=== PATIENT | female | born 1935 | race Caucasian/White ===

== ENCOUNTER 2019-11-13 15:29 | Emergency (ER) | payer OTHER ==
--- NOTE | 2019-11-13 16:31 | RAD ---
Exam: Chest one view HISTORY:Pain. Shortness of breath Comparison: 11/04/2013 FINDINGS: Cardiac silhouette: Cardiomegaly. Stable sternotomy wires and prosthetic heart valve. Aorta: Unremarkable Pulmonary vessels: Normal Costophrenic angles: Clear LUNGS: No masses or consolidation. Chronic lung parenchymal changes. Pneumothorax: None Osseous abnormalities: None IMPRESSION: 1. Cardiomegaly. 2. No evidence of congestive heart failure.
[2019-11-13 16:32] LABS: #Basophils 0.1 thou/uL (0.0-0.2); #Eosinphils 0.5 thou/uL (0.0-0.7); #Lymphocytes 2.2 thou/uL (1.20-3.40); #Neutrophils 5.2 thou/uL (1.40-6.50); %Basophils 0.7 % (0.0-1.0); %Eosinophils 5.3 % (0.0-10.0); %Lymphocytes 24.5 % (21.0-51.0); %Monocytes 10.9 % (0.0-10.0); %Neutrophils 58.7 % (42.0-75.0); Hemoglobin 10.4 g/dL (12.0-16.0); Mean Corpuscular HGB CONC 32.9 g/dL (32.0-36.0); Mean Corpuscular Hemoglobin 30.3 pg (27.0-31.0); Mean Platelet Volume 7.6 fL (7.4-10.4); Platelet Count 235 thou/uL (130-400); RBC Distribution Width 12.7 % (11.5-14.5); Red Blood Cell (RBC) Count 3.43 mill/uL (4.20-5.40); White Blood Cell (WBC) Count 8.9 thou/uL (4.8-10.8)
[2019-11-13 16:47] LABS: ALT (SGPT) 14 U/L (8-55); AST (SGOT) 18 U/L (5-34); Albumin 4.1 g/dL (3.4-4.8); Alkaline Phosphatase 86 U/L (40-110); Anion Gap 14 mmol/L (10-20); BUN (Urea Nitrogen) 13 mg/dL (9.8-20.1); Bilirubin, Total 0.4 mg/dL (0.2-1.2); Calc. Creatinine Clearance 0 mL/min (70-130); Calcium 9.6 mg/dL (7.8-10.44); Carbon Dioxide 23 mmol/L (23-31); Chloride 107 mmol/L (98-107); Estimated GFR-MDRD 56; Globulin 3.4 g/dL (2.4-3.5); Glucose 87 mg/dL (83-110); Potassium 3.8 mmol/L (3.5-5.1); Protein, Total 7.5 g/dL (6.0-8.3); Sodium 140 mmol/L (136-145)
[2019-11-13 18:55] LABS: Troponin I 0.011 ng/mL (< 0.028)
== END 2019-11-13 19:10 | disposition home or self-care (01) ==
LOC: MERGE 15:29 → ERS 15:29
DX: R55 Syncope and collapse (principal); R06.02 Shortness of breath; E78.5 Hyperlipidemia, unspecified; I10 Essential (primary) hypertension; Z79.82 Long term (current) use of aspirin; Z79.899 Other long term (current) drug therapy
CPT/HCPCS: 36415; 71045; 80053; 83880; 84484; 85025; 93005

== ENCOUNTER 2020-04-21 13:56 | Observation (INO) | payer MEDICARE, OTHER ==
[~2020-04-21 13:56] MED LIST: Iopamidol-370 76% 500 ML 1 ML ONE
[2020-04-21 15:10] LABS: #Lymphocytes 0.7 thou/uL (1.20-3.40); #Monocytes 0.4 thou/uL (0.11-0.59); #Neutrophils 10.7 thou/uL (1.40-6.50); %Basophils 0.3 % (0.0-1.0); %Eosinophils 0.4 % (0.0-10.0); %Lymphocytes 5.5 % (21.0-51.0); %Monocytes 3.2 % (0.0-10.0); %Neutrophils 90.7 % (42.0-75.0); Hemoglobin 9.4 g/dL (12.0-16.0); Mean Corpuscular HGB CONC 32.7 g/dL (32.0-36.0); Mean Corpuscular Hemoglobin 31.7 pg (27.0-31.0); Mean Corpuscular Volume 96.8 fL (78.0-98.0); Mean Platelet Volume 7.7 fL (7.4-10.4); Platelet Count 248 thou/uL (130-400); RBC Distribution Width 13.2 % (11.5-14.5); Red Blood Cell (RBC) Count 2.97 mill/uL (4.20-5.40); White Blood Cell (WBC) Count 11.8 thou/uL (4.8-10.8)
--- NOTE | 2020-04-21 15:19 | CT ---
CT BRAIN NONCONTRAST: DATE: 04/21/2020 HISTORY: 84-year-old female with nausea, dizziness, and vomiting FINDINGS: There is no evidence of acute intra-axial or extra-axial hemorrhage. There is no midline shift or any other mass effect. There is no extra-axial fluid collection. There is no evidence of obstructive hydrocephalus. Calvarium is intact. There is diffuse brain parenchymal volume loss. There are low att enuation areas in the white matter. These are nonspecific, but in a patient of this age, they are probably chronic ischemic white matter changes due to microvascular atherosclerosis. IMPRESSION: 1) No acute intracranial findings. 2) involutional changes and chronic ischemic white matter changes.
--- NOTE | 2020-04-21 15:30 | RAD ---
PORTABLE CHEST: 04/21/20 INDICATIONS: Dizziness. COMPARISON: 11/13/19. Mild cardiomegaly and mild vascular engorgement. Postop sternotomy changes. Linear stranding in the p eripheral left lung is stable. Mild vascular congestion may be more prominent than on the prior study . No consolidation. No significant effusion. IMPRESSION: Cardiomegaly and mild vascular congestion. POS: AH
[2020-04-21 15:31] LABS: ALT (SGPT) 11 U/L (8-55); AST (SGOT) 22 U/L (5-34); Albumin 4.3 g/dL (3.4-4.8); Alkaline Phosphatase 89 U/L (40-110); Anion Gap 15 mmol/L (10-20); BUN (Urea Nitrogen) 18 mg/dL (9.8-20.1); Bilirubin, Total 0.4 mg/dL (0.2-1.2); Calc. Creatinine Clearance 0 mL/min (70-130); Calcium 9.2 mg/dL (7.8-10.44); Carbon Dioxide 21 mmol/L (23-31); Chloride 108 mmol/L (98-107); Estimated GFR-MDRD 53; Globulin 3.2 g/dL (2.4-3.5); Glucose 130 mg/dL (83-110); Potassium 4.1 mmol/L (3.5-5.1); Protein, Total 7.5 g/dL (6.0-8.3); Sodium 140 mmol/L (136-145)
[2020-04-21] MEDS ORDERED: Meclizine HCl 25 MG TAB ONE (15:57)
[2020-04-21 16:29] LABS: Bacteria/HPF None Seen HPF (None Seen); Bilirubin Negative (Negative); Blood, Urine Negative (Negative); Clarity Clear (Clear); Glucose, Urine (Dipstick) Normal (Negative); Ketone, Urine Trace mg/dL (Negative); Leukocyte Negative Leu/uL (Negative); Nitrite Negative (Negative); Protein, Urine (Dipstick) 30 mg/dL (Neg-Trace); RBC/HPF 0-3 HPF (0-3); Specific Gravity, Urine 1.016 (1.002-1.036); Squamous Epithelial None Seen HPF (0-3); Urobilinogen Normal mg/dL (Less than 2); WBC/HPF 0-3 HPF (0-3)
--- NOTE | 2020-04-21 18:01 | PDOC.FPRHP ---
- History of Present Illness Chief Complaint: dizziness History of Present Illness: Pt is an 84yo female with PMH of HTN, HLD and hypothryoidism who presents with one episode of dizziness. She was outside watering her yard this morning and had a sudden onset of dizziness, and felt as if she might faint. She then began vomiting. She was able to sit down and drink some water. The dizziness resolved on its own. She has had veritgo in the past but this felt different. She felt that this was more intense and she had a feeling that something was wrong with her heart. She is unable to describe the dizziness, but denied feeling like the room was spinning. Has not recently been sick. Eating and drinking as normal. Admits to feeling anxious, but says that is normal for her. Denies CP, SOB, fall, weakness, numbness/tingling, slurred speech. ED Course: meclizine - Allergies/Adverse Reactions Allergies Allergy/AdvReac Type Severity Reaction Status Date / Time erythromycin base Allergy Unknown Verified 11/16/19 15:24 Penicillins Allergy Unknown Verified 11/16/19 15:24 Sulfa (Sulfonamide Allergy Unknown Verified 11/16/19 15:24 Antibiotics) tetracycline [Tetracycline] Allergy Unknown Verified 11/16/19 15:24 vancomycin Allergy Unknown Verified 11/16/19 15:24 - Home Medications Medication Instructions Recorded Confirmed Type Furosemide [Lasix] 40 mg PO DAILY 06/15/13 01/15/17 History Levothyroxine Sodium [Tirosint] 75 mcg PO DAILY 06/15/13 01/15/17 History Losartan Potassium [Cozaar] 25 mg PO DAILY 06/15/13 01/15/17 History Multivitamin [Multivitamins] 1 cap PO DAILY 06/15/13 01/15/17 History Simvastatin [Zocor] 40 mg PO HS 06/15/13 01/15/17 History diphenhydrAMINE [Benadryl] 25 mg PO HS 06/15/13 01/15/17 History Aspirin Chewable 81 mg PO DAILY 11/02/13 01/15/17 History Diltiazem HCl [Diltiazem 24Hr CD] 120 mg PO DAILY 11/02/13 01/15/17 History Fluticasone Propionate [Flonase 1 spray NASAL DAILY 01/15/17 01/15/17 History Nasal Curran] Potassium Chloride [Klor-Con M20] 20 meq PO HS 01/15/17 01/15/17 History - History PMHx: HLD, HTN, hypothyroidism PSHx: CABGx5 in 2011, mitral valve repair 2013, cataracts surgery 4 years ago FHx: mother- heart disease Social: never smoker, rarely drinks alcohol, denies drug use - Review of Systems General: denies: fever/chills, weight/appetite/sleep changes Eyes: denies: vision changes ENT: denies: nasal congestion Respiratory: denies: cough, congestion, shortness of breath Cardiovascular: denies: chest pain, edema Gastrointestinal: reports: nausea, vomiting. denies: diarrhea Skin: denies: rashes Musculoskeletal: denies: pain, tenderness Neurological: denies: numbness, syncope, weakness Psychological: reports: anxiety - Vital signs BP: 164/61, Pulse: 86, Resp: 24, O2 sat: 97 on (Room Air), BP taken on forearm - Physical Exam -Constitutional: sitting in bed, appeared to be working hard to breath but she and daughter said this is normal HEENT: normocephalic and atraumatic, grossly normal vision, grossly normal hearing -HEENT: dry MM Heart: RRR -Heart: blowing 2/6 holosytolic murmur heard best at apex of heart Lungs: CTAB, no wheezing Abdomen: soft, non-tender, bowel sounds present Musculoskeletal: normal structure, normal tone Neurological: no focal deficit, CN II-XII intact -Neurological: HINTS exam showed no nystagmus, no vertical skew and neg head impulse test Skin: no rash/lesions, no jaundice Psychiatric: normal mood and affect FMR H&P: Results - Labs Result Diagrams: 04/21/20 15:03 04/21/20 15:03 Lab results: WBC 11.8 thou/uL (4.8-10.8) H 04/21/20 15:03 Hgb 9.4 g/dL (12.0-16.0) L 04/21/20 15:03 Hct 28.7 % (36.0-47.0) L 04/21/20 15:03 MCV 96.8 fL (78.0-98.0) 04/21/20 15:03 Plt Count 248 thou/uL (130-400) 04/21/20 15:03 Neutrophils % 90.7 % (42.0-75.0) H 04/21/20 15:03 Sodium 140 mmol/L (136-145) 04/21/20 15:03 Potassium 4.1 mmol/L (3.5-5.1) 04/21/20 15:03 Chloride 108 mmol/L (98-107) H 04/21/20 15:03 Carbon Dioxide 21 mmol/L (23-31) L 04/21/20 15:03 BUN 18 mg/dL (9.8-20.1) 04/21/20 15:03 Creatinine 1.00 mg/dL (0.6-1.1) 04/21/20 15:03 Glucose 130 mg/dL (83-110) H 04/21/20 15:03 Calcium 9.2 mg/dL (7.8-10.44) 04/21/20 15:03 Total Bilirubin 0.4 mg/dL (0.2-1.2) 04/21/20 15:03 AST 22 U/L (5-34) 04/21/20 15:03 ALT 11 U/L (8-55) 04/21/20 15:03 Alkaline Phosphatase 89 U/L (40-110) 04/21/20 15:03 Serum Total Protein 7.5 g/dL (6.0-8.3) 04/21/20 15:03 Albumin 4.3 g/dL (3.4-4.8) 04/21/20 15:03 Urine Ketones Trace mg/dL (Negative) A 04/21/20 16:07 Urine Blood Negative (Negative) 04/21/20 16:07 Urine Nitrite Negative (Negative) 04/21/20 16:07 Ur Leukocyte Esterase Negative [place]/uL (Negative) 04/21/20 16:07 Urine RBC 0-3 HPF (0-3) 04/21/20 16:07 Urine WBC 0-3 HPF (0-3) 04/21/20 16:07 Ur Squamous Epith Cells None Seen HPF (0-3) 04/21/20 16:07 Urine Bacteria None Seen HPF (None Seen) 04/21/20 16:07 FMR H&P: A/P - Plan #Presynope 2/2 arrhythmia vs TIA vs vertigo vs medications - hx of HTN, HLD, CABGx5 and mitral valve repair - Neuro exam normal, non-focal - ekg showed LVH - Brain CT normal, ordered MRI and CTA Head/Neck - pending labs: BNP, TSH, A1c, lipid panel - echo ordered - fall precautions - admit to stroke with continuous tele monitor #Anemia - appears to be chronic - EGD and colonoscopy in 2017 - normal - #HTN - BPs in ED elevated up to Ps 170 - hydralazine prn - continue home meds #HLD - continue home meds Code: Full Diet: HH DVT PPx: lovenox Dispo: Admit to stroke, obs, stable, pending labs and imaging, LOS <48hrs FMR H&P: Upper Level - Plan Date/Time: 04/21/201800 IKiesha MD, have evaluated this patient and agree with findings/plan as outlined by customer operations intern resident. Pertinent changes/additions are listed here. This is a 84yo F with PMH of HLD, heart valve repair, anxiety who presents to the ER for dizziness. She states that she was outside watering her plants when she became very dizzy and felt like she was going to pass out. She states she has had vertigo in the past but this was much more intense. She had difficulty describing the dizziness sensation. Reports she was able to sit down on the ground. No fall. She states that she was nauseous and vomited at the time. Denies any SOB, chest pain, diaphoresis, palpitations during the episode. She denies any vision changes, facial droop, slurred speech, extremity weakness or numbness. Her came out to help her. Shes not sure how long the episode lasted but she improved as time went on. Reports no recent illness. Has been eating well. See customer operations intern not for full HPI/details. In the ER, the patient was given 1 L NS, meclizine. She had resolution of dizziness with this. CXR showed cardiomegaly. Vs remarkable for elevated BPs, but otherwise normal. On exam, patient breathing through pursed lips. Fidgeting, but not in distress. Appeared anxious. Pansystolic murmur over mitral /6. Trace pitting edema b/l LE. No abd distention or tenderness. Normal neuro exam. HINTs exam negative. Will admit patient to stroke obs. Concern for TIA vs CVA vs cardiac etiology of symptoms vs vertigo. Pending BNP. Will get echo due to cardiomegaly shown on CXR and hx of valve replacement. CT brain neg for bleed or any abnormalities. Will order CTA head/neck, MRI. EKG showing nonspecific T wave changes - will reorder EKG. Will risk stratify with A1c, TSH, and lipid panel. Anemia - appears chronic and at baseline. Will continue to monitor. Can work up further with iron studies, B12/folate. Will continue home medications for chronic conditions. Add hydroxyzine for anxiety. Dispo: admit to stroke, obs. Monitor telemetry. Ppx: lovenox Diet: HH Code: Full Case discussed with Dr. James Addendum - Attending - Attending Attestation Date/Time: 04/21/202110 I personally evaluated the patient and discussed the management with Dr. Braswell/ Michele. I agree with the History, Examination, Assessment and Plan documented above with any addition or exceptions noted below. negative [place]-Halpike maneuver. F/U Telemetry, MRI, and neuro exam overnight.
[2020-04-21] MEDS ORDERED: Ondansetron PF 4 MG/2 ML Vial IVP PRN (18:48)
[2020-04-21] MEDS ORDERED: Acetaminophen 325 MG TAB PO PRN (18:48)
[2020-04-21] MEDS ORDERED: Ondansetron ODT 4 MG TAB PO PRN (18:48)
[2020-04-21] MEDS ORDERED: hydrALAZINE 10 MG TAB PO PRN (19:20)
[2020-04-21 19:42] LABS: Hemoglobin A1c 4.7 % (4.0-6.0)
[2020-04-21] MEDS ORDERED: Meclizine HCl 25 MG TAB PO PRN (19:42)
[2020-04-21] MEDS ORDERED: Sodium Chloride 0.9% 1,000 ML IV SCH (20:30)
[2020-04-21 20:40] VITALS: BMI 22.7
[2020-04-21] MEDS ORDERED: Aspirin 325 MG TAB PO SCH (21:30)
[2020-04-21 22:35] LABS: Base Excess (BEa) -4.4 mEq/L (-2.0 to +3.0); CO2 Tension 28.5 mmHg (35.0-45.0); Calcium, Ionized (arterial) 1.14 mmol/L (1.12-1.30); Carboxyhemoglobin (COHb) 1.6 gm% (0.0-3.0); Hemoglobin (Hb) 8.1 g/dL (12.0-16.0); O2 Tension (PaO2), arterial 74.3 mmHg (> 60.0); Potassium - ABG Lab 3.52 mmol/L (3.70-5.30); pH, Arterial 7.44 (7.35-7.45)
[2020-04-21 22:36] LABS: Puncture Site RR
[2020-04-21 22:38] LABS: ALV-art Gradient 39.805 (0-20)
[2020-04-21] MEDS ORDERED: diphenhydrAMINE 25 MG CAP PO PRN (23:41)
[2020-04-21] MEDS ORDERED: Atorvastatin Calcium 40 MG TAB PO SCH (23:45)
[2020-04-22 04:22] LABS: #Eosinphils 0.4 thou/uL (0.0-0.7); #Lymphocytes 1.6 thou/uL (1.20-3.40); #Monocytes 1.2 thou/uL (0.11-0.59); #Neutrophils 7.9 thou/uL (1.40-6.50); %Basophils 0.3 % (0.0-1.0); %Eosinophils 3.7 % (0.0-10.0); %Lymphocytes 14.2 % (21.0-51.0); %Neutrophils 70.7 % (42.0-75.0); Hemoglobin 8.3 g/dL (12.0-16.0); Mean Corpuscular HGB CONC 33.1 g/dL (32.0-36.0); Mean Corpuscular Hemoglobin 32.1 pg (27.0-31.0); Mean Platelet Volume 7.6 fL (7.4-10.4); Platelet Count 237 thou/uL (130-400); RBC Distribution Width 13.2 % (11.5-14.5); Red Blood Cell (RBC) Count 2.59 mill/uL (4.20-5.40); White Blood Cell (WBC) Count 11.2 thou/uL (4.8-10.8)
[2020-04-22 04:41] LABS: Iron 26 ug/dL (50-170); Iron Binding Capacity, Total 221 mcg/dL (265-497)
--- NOTE | 2020-04-22 07:22 | PDOC.FM ---
- Subjective Subjective: Pt is doing well today. Her symptoms have resolved. She ambulating with an issue. She became lightheaded, warm after working in the yard. Lightheadedness apparently alleviated a few minutes after the initial insult. - Objective Vital Signs & Weight: Vital Signs (12 hours) Temp Pulse Resp BP BP BP Pulse Ox 04/22/20 03:44 98.3 F 80 20 146/59 H 95 04/22/20 00:17 98.1 F 90 20 158/84 H 95 04/21/20 20:41 97.6 F 94 22 H 165/71 H 96 Weight Weight 56.382 kg I&O: 04/21/20 04/22/20 04/23/20 06:59 06:59 06:59 Intake Total 1200 Balance 1200 Result Diagrams: 04/22/20 04:06 04/21/20 15:03 EKG Reviewed by me: Yes (Sinus Rhythm, few PAC's) Phys Exam - Physical Examination Constitutional: NAD HEENT: PERRLA, moist MMs Neck: no JVD, full ROM Respiratory: no wheezing, clear to auscultation bilateral Cardiovascular: RRR, no significant murmur Gastrointestinal: soft, non-tender, positive bowel sounds Neurological: non-focal, normal sensation, moves all 4 limbs Psychiatric: normal affect, A&O x 3 Skin: no rash, normal turgor Dx/Plan (1) Pre-syncope Status: Acute (2) Hx of coronary artery disease Code(s): Z86.79 - PERSONAL HISTORY OF OTHER DISEASES OF THE CIRCULATORY SYSTEM Status: Acute (3) Anemia Code(s): D64.9 - ANEMIA, UNSPECIFIED Status: Acute (4) Hyperlipidemia Code(s): E78.5 - HYPERLIPIDEMIA, UNSPECIFIED Status: Acute (5) HTN (hypertension) Code(s): I10 - ESSENTIAL (PRIMARY) HYPERTENSION Status: Acute (6) Hx of CABG Status: Acute (7) Carotid artery stenosis Code(s): I65.29 - OCCLUSION AND STENOSIS OF UNSPECIFIED CAROTID ARTERY Status : Acute - Plan Plan: #Presynope 2/2 arrhythmia vs TIA vs vertigo vs medications - hx of HTN, HLD, CABGx5 and mitral valve repair - Neuro exam normal, non-focal - ekg showed LVH - Brain CT normal, CTA head/neck revealed moderate carotid artery stenosis - echo ordered, mri pending read - fall precautions #Normocytic Anemia - appears to be chronic - labs point towards iron deficiency anemia. Start ferrous sulfate. Follow up with PCP. - EGD and colonoscopy in 2017 - normal #HTN - hydralazine prn - continue home meds #HLD - continue home meds Code: Full Diet: HH DVT PPx: lovenox Dispo: discharge if echo, mri are wnl. Addendum - Attending - Attending Attestation Date/Time: 04/22/20 1537 I personally evaluated the patient and discussed the management with Dr. Van. I agree with the History, Examination, Assessment and Plan documented above with any addition or exceptions noted below. Patient has no more dizziness. MRI report was pending. If normal, will d/c later today.
[2020-04-22] MEDS ORDERED: Ferrous Sulfate 325 MG TAB PO SCH (08:00)
[2020-04-22] MEDS ORDERED: Aspirin 81 mg Enteric Coated Tablet PO SCH (09:00)
[2020-04-22] MEDS ORDERED: Potassium Chloride 20 MEQ TAB PO SCH (09:00)
[2020-04-22] MEDS ORDERED: Levothyroxine Sodium 75 MCG TAB PO SCH (09:00)
[2020-04-22] MEDS ORDERED: Multivitamin W/ Minerals 1 TAB PO SCH (09:00)
[2020-04-22] MEDS ORDERED: Fluticasone Propionate Nasal Spray 16 gm Bottle NASAL SCH (09:00)
[2020-04-22] MEDS ORDERED: Enoxaparin Sodium 40 MG/0.4 ML SYRINGE SC SCH (09:00)
[2020-04-22] MEDS ORDERED: Losartan 25 MG TAB PO SCH (09:00)
[2020-04-22] MEDS ORDERED: Furosemide 20 MG TAB PO SCH (09:00)
--- NOTE | 2020-04-22 09:10 | MRI ---
MRI OF THE BRAIN WITHOUT CONTRAST: Date: 04/22/2020 INDICATION: 84-year-old female with history of presyncope, dizziness, nausea, and vomiting. COMPARISON: CT of the brain dated 04/21/2020. FINDINGS: No definite area of restricted diffusion is evident. There is mild chronic small vessel white matter ischemic change. Septum pellucidum and third ventricle are midline. There are appropriate flow-voids within the major intracranial vessels. There is mild generalized cerebral and cerebellar atrophy. Mot ion artifact does limit image detail on this exam. The [place] lenses have been replaced. The skull ap pears within normal limits. IMPRESSION: No definite acute intracranial abnormality demonstrated within the limitations of this exam. POS: CLARIBEL
--- NOTE | 2020-04-22 09:53 | CT ---
Exam: CTA neck with contrast CTA head with contrast HISTORY: Dizziness COMPARISON: None TECHNIQUE: 1. Multiple contiguous axial images were obtained and a CTA of the neck with contrast. 3-D sagittal a nd coronal MIP reformats were performed. 2. Multiple contiguous axial images were obtained and a CTA of the head with contrast. 3-D sagittal a nd coronal MIP reformats were performed. FINDINGS: CTA NECK: Aortic arch: Normal origin of the carotid arteries from the arch. No significant atherosclerotic dise ase of the subclavian arteries. Right common carotid artery: No significant atherosclerotic disease or narrowing Left common carotid artery: No significant atherosclerotic disease or narrowing Right internal carotid artery: Moderate proximal atherosclerotic disease with approximately 50% steno sis per NASCET criteria Right external carotid artery: No significant atherosclerotic disease or narrowing Left internal carotid artery: Moderate proximal atherosclerotic disease with approximately 40% stenos is per NASCET criteria Left external carotid artery: No significant atherosclerotic disease or narrowing Right cervical vertebral artery: No significant atherosclerotic disease or narrowing Left cervical vertebral artery: No significant atherosclerotic disease or narrowing No cervical adenopathy. Emphysematous changes are seen in the lung apices. Degenerative changes are s een in the spine. CTA HEAD: Moderate diffuse nonfocal atherosclerotic disease is seen in the cavernous portion of both internal c arotid arteries. Right intracranial internal carotid artery: Patent without narrowing or occlusion Right anterior cerebral artery: Patent without narrowing or occlusion Right middle cerebral artery: Patent without narrowing or occlusion Left intracranial internal carotid artery: Patent without narrowing or occlusion Left anterior cerebral artery: Patent without narrowing or occlusion Left middle cerebral artery: Patent without narrowing or occlusion No aneurysmal dilatation is seen in the anterior circulation. Right vertebral artery: Mild diffuse atherosclerotic disease. Patent without narrowing or occlusion Left vertebral artery: Mild diffuse atherosclerotic disease. Patent without narrowing or occlusion Basilar artery: Patent without narrowing or occlusion The posterior cerebral arteries and cerebellar arteries are patent without narrowing or occlusion. No aneurysmal dilatation is seen in the posterior circulation. IMPRESSION: 1. No significant CTA abnormality of the neck 2. Moderate proximal bilateral internal carotid artery atherosclerotic disease without hemodynamicall y significant stenosis Transcribed Date/Time: 04/22/2020 9:53 AM
[2020-04-22 12:14] VITALS: BP 137/58; TEMP 98.7
[2020-04-22 13:58] LABS: SARS-CoV-2 MS2 Positive; SARS-CoV-2 N Gene Negative; SARS-CoV-2 S Gene Negative; SARS-CoV-2 by NAA Not Detected (NotDetected); SARS-CoV-2 orf1ab Negative
[2020-04-22] MEDS ORDERED: Atorvastatin Calcium 40 MG TAB PO SCH (21:00)
--- NOTE | 2020-04-23 06:34 | DIS ---
DATE OF ADMISSION: 04/21/2020 DATE OF DISCHARGE: 04/22/2020 RESIDENT: Jd Van DO ADMITTING ATTENDING: Montana James MD DISCHARGE ATTENDING: Lisbet White MD CONSULTS: None. PROCEDURES: 1. Brain CT on 04/21/2020 revealed no acute intracranial abnormalities. Involutional changes and chronic ischemic white matter changes. 2. Chest x-ray on 04/21/2020 revealed cardiomegaly and mild vascular congestion. 3. CT angiography of head and neck on 04/21/2020 revealed no significant CTA abnormality of the neck. Moderate proximal bilateral internal carotid artery atherosclerotic disease without hemodynamically significant stenosis. 4. Brain MRI on 04/22/2020 revealed no definite acute intracranial abnormality demonstrated within the limitations of the exam. 5. Echocardiogram on 04/22/2020 revealed EF estimated to be 60% to 65%. Restrictive filling pattern. Normal right ventricular size and function. Left atrium is [id number] dilated. Mildly enlarged right atrium size. Mitral annular calcification is present. S/P MV ring placement in 2013. Qkvj-[id number] mitral regurg is present. [id number] aortic regurgitation is noted. Mild AV sclerosis. [id number] tricuspid regurgitation. Mild pulmonic regurgitation present. PRIMARY DIAGNOSES: 1. Dehydration. 2. Vasovagal. 3. Moderate carotid artery atherosclerotic disease. 4. Normocytic anemia. SECONDARY DIAGNOSES: 1. Hypertension. 2. Hyperlipidemia. DISCHARGE MEDICATIONS: 1. Simvastatin 20 mg p.o. at bedtime. 2. Levothyroxine 75 mcg p.o. daily. 3. Lasix 20 mg p.o. daily. 4. Losartan 50 mg p.o. daily. 5. Benadryl 25 mg p.o. p.r.n. allergies. 6. Multivitamin 1 cap p.o. daily. 7. Diltiazem 120 mg p.o. daily. 8. Aspirin 81 mg p.o. daily. 9. Potassium 20 mEq p.o. daily. 10. Flonase 1 spray each nostril daily. 11. Ferrous sulfate 142 mg extended release p.o. daily. 12. Amitriptyline 25 mg p.o. at bedtime. 13. Sertraline 100 mg p.o. at bedtime. HISTORY OF PRESENT ILLNESS/HOSPITAL COURSE: Cinthya Hernandez is an 84-year-old with past medical history of hypertension, hyperlipidemia, hypothyroidism, coronary artery disease status post CABG x5 vessels, and mitral valve repair in 2013, who presented with a presyncopal episode while she was working outside in the heat. She states that she became lightheaded and nauseated requiring her to cool off by splashing water on her face. By the time she made it to the emergency department, she was found to be no longer dizzy but required meclizine for her nausea. EKG did not have any significant findings. Troponin was within normal limits, sodium 140, potassium 4.1, creatinine 1.0, glucose 130, BNP 185, and TSH 2.4. She was noted to have normal CT of her head without any acute abnormalities. She subsequently stayed on tele with telemetry overnight and did not have any arrhythmias that will be concerning for presyncopal or syncopal episode. CTA of the head and neck revealed moderate atherosclerotic disease, but this was not presumed to be significant enough to cause a presyncopal or syncopal episode. MRI of her head was within normal limits. Echocardiogram did not show severe structural disease to cause syncopal or presyncopal episode. The patient was also subsequently found to be anemic, which has been worked up and treated by Dr. Kasper. She was ordered lab work, revealed iron deficiency anemia. She denied any blood in her stools. After speaking with Dr. Kasper, the patient irregularly and inconsistently takes her ferrous sulfate. Discussed the importance of her taking the medication. Follow up with Dr. Kasper next week. Return precautions given. DISPOSITION: Stable. DISCHARGE INSTRUCTIONS: 1. Location: [facility]. 2. Diet: Heart healthy. 3. Activity: Cardiopulmonary limitations. 4. Follow up with Dr. Kasper within a week. Job ID: [id number]
--- NOTE | 2020-04-25 17:29 | EKG ---
Test Reason : CP Blood Pressure : / mmHG Vent. Rate : 093 BPM Atrial Rate : 093 BPM P-R Int : 186 ms QRS Dur : 114 ms QT Int : 402 ms P-R-T Axes : 071 071 094 degrees QTc Int : 499 ms Sinus rhythm with marked sinus arrhythmia Nonspecific ST and T wave abnormality Abnormal ECG When compared with ECG of 21-APR-2020 14:10, (Unconfirmed) Sinus rhythm has replaced Wide QRS rhythm Confirmed by ROBBI FERRARO (2) on 04/25/2020 5:28:47 PM Referred By: ARA Confirmed By:ROBBI FERRARO
== END 2020-04-22 15:22 | disposition home or self-care (01) ==
LOC: ERS 13:56 → 2SE 18:47
PROVIDERS: ADMIT Family Medicine; ATTEND Family Medicine
DX: E86.0 Dehydration (principal); I25.10 Atherosclerotic heart disease of native coronary artery without angina pectoris; I11.9 Hypertensive heart disease without heart failure; E03.9 Hypothyroidism, unspecified; E78.5 Hyperlipidemia, unspecified; I65.23 Occlusion and stenosis of bilateral carotid arteries; D50.9 Iron deficiency anemia, unspecified; Z79.82 Long term (current) use of aspirin; Z79.899 Other long term (current) drug therapy; Z88.0 Allergy status to penicillin; Z88.1 Allergy status to other antibiotic agents; Z88.2 Allergy status to sulfonamides; Z95.1 Presence of aortocoronary bypass graft; Z20.828 Contact with and (suspected) exposure to other viral communicable diseases
CPT/HCPCS: 51701; 70450; 70496; 70498; 70551; 71045; 80061; 82607; 82728; 82746; 82805; 83036; 83540; 83550; 83880; 84484; 85025; 93005; 93306; 96360; 96361; 96372; 99285; G0378 ×3; U0003; 36415; 80053; 81003; 81015; 84443; 87635; 93010; J1650; Q9967

== ENCOUNTER 2020-09-12 16:49 | Inpatient (IN) | payer MEDICARE ==
[2020-09-12] MEDS ORDERED: Ondansetron PF 4 MG/2 ML Vial ONE (16:53)
[2020-09-12] MEDS ORDERED: Pantoprazole 40 MG VIAL ONE (17:28)
--- NOTE | 2020-09-12 17:36 | RAD ---
PORTABLE CHEST: History: Hypotension, diarrhea. Comparison: 04-21-2020 FINDINGS: Heart size is enlarged. There are post op sternotomy changes. The lungs are clear of infiltrates. No signs of failure. Valve replacement is noted. Post op changes of the right shoulder. IMPRESSION: Cardiomegaly. No acute findings. POS: OFF
[2020-09-12 17:39] LABS: INR-International Normal Ratio 1.1; PTT 26.3 sec (22.9-36.1); Prothrombin Time 14.9 sec (12.0-14.7)
[2020-09-12 18:14] LABS: Free T4 (Free Thyroxine) 1.03 ng/dL (0.70-1.48); Thyroid Stimulating Hormone 6.3468 uIU/mL (0.35-4.94)
[2020-09-12 18:35] LABS: Hemoglobin 7.8 g/dL (12.0-16.0); Mean Corpuscular HGB CONC 31.7 g/dL (32.0-36.0); Mean Corpuscular Hemoglobin 29.4 pg (27.0-31.0); Mean Corpuscular Volume 92.9 fL (78.0-98.0); Mean Platelet Volume 8.2 fL (7.4-10.4); Platelet Count 275 thou/uL (130-400); RBC Distribution Width 12.7 % (11.5-14.5); Red Blood Cell (RBC) Count 2.66 mill/uL (4.20-5.40); White Blood Cell (WBC) Count 36.8 thou/uL (4.8-10.8)
[2020-09-12 18:44] LABS: SARS-CoV-2 NAA Rapid Test Not Detected (NotDetected)
[2020-09-12 18:58] LABS: Band 35 % (5-11); Lymphocytes 2 % (21-51); MDiff Complete? YES; Monocytes 5 % (0-10); Neutrophil 58 % (42-75); Platelet Morphology Comment Appears Adequate; Polychromasia SLIGHT = 2-3 cells (100X) (0-2/hpf); Tear Drops SLIGHT = 2-5 cells (100X) (0-1/hpf)
[2020-09-12] MEDS ORDERED: Cefepime 2 GM VIAL ONE (19:44)
[2020-09-12] MEDS ORDERED: metroNIDAZOLE 500 MG in Premix Bag 1 BAG IVPB SCH (20:00)
[2020-09-12 20:01] LABS: ALT (SGPT) 11 U/L (8-55); AST (SGOT) 20 U/L (5-34); Albumin 3.7 g/dL (3.4-4.8); Alkaline Phosphatase 159 U/L (40-110); Anion Gap 20 mmol/L (10-20); BUN (Urea Nitrogen) 48 mg/dL (9.8-20.1); Bilirubin, Total 0.3 mg/dL (0.2-1.2); Calc. Creatinine Clearance 0 mL/min (70-130); Calcium 8.5 mg/dL (7.8-10.44); Carbon Dioxide 15 mmol/L (23-31); Chloride 112 mmol/L (98-107); Glucose 117 mg/dL (83-110); Protein, Total 6.7 g/dL (6.0-8.3); Sodium 143 mmol/L (136-145)
--- NOTE | 2020-09-12 20:07 | PDOC.FPRHP ---
- History of Present Illness Chief Complaint: V/D, black stools History of Present Illness: This is an 84F who was brought to the ED by EMS for persistent V/D that started yesterday night. 2 days ago, she had a general sense of malaise and "upset stomach" but the V/D did not start until that night. Prior to these sxs, she ate BBQ but no one else that ate the BBQ has been sick. She has had no sick contacts and has otherwise been eating/drinking well. The diarrhea has been black but she states she has been having black stools since the Spring when Dr. Kasper changed her Fe supplementation. She states she has been "borderline anemic" her whole life and they have never found the cause. She had a colonoscopy ~3yrs [address] Alvarez which was reportedly negative. She has never had an EGD. No other family members have bleeding disorders or hx of bleeds. By 1300, she was weak, not talkative, sleeping a lot, and "looked dove". She is normall able to ambulate by herself without issue but her daughter states she had to help her out of bed and she collapsed in her arms with LOC. The daughter states she did not fall or sustain and injury because she caught her. On arrival to the ED, her hgb was 7.8. On chart review, her hgb has been gradually decreasing since a hgb of 11.8 in 2019. FOBT was +. Vomiting was dark and questionably of coffee-ground appearance. She was also found to have a WBC count of 37 with 35% bands; LA of 3.2, so she was started on Cefepime and Flagyl for possible colitis. She had a Cr of 1.54 with a baseline of ~1.00 based on chart review; BUN of 48 with a baseline of ~20. ED Course: Zofran 4mg, Flagyl 500mg, Cefepime 2g, Protonix 40mg IV, 2.5L NS bolus - Allergies/Adverse Reactions Allergies Allergy/AdvReac Type Severity Reaction Status Date / Time erythromycin base Allergy Unknown Verified 09/12/20 23:24 Penicillins Allergy Unknown Verified 09/12/20 23:24 Sulfa (Sulfonamide Allergy Unknown Verified 09/12/20 23:24 Antibiotics) tetracycline [Tetracycline] Allergy Unknown Verified 09/12/20 23:24 vancomycin Allergy Unknown Verified 09/12/20 23:24 - Home Medications Medication Instructions Recorded Confirmed Type Levothyroxine Sodium [Tirosint] 75 mcg PO DAILY 06/15/13 09/13/20 History Losartan Potassium [Cozaar] 50 mg PO DAILY 06/15/13 09/13/20 History diphenhydrAMINE [Benadryl] 25 mg PO Q6HR PRN 06/15/13 09/13/20 History Aspirin Chewable [Aspirin Chewable 81 mg PO DAILY 11/02/13 09/13/20 History Tablet] Diltiazem HCl [Diltiazem 24Hr CD] 120 mg PO DAILY 11/02/13 09/13/20 History Fluticasone Propionate [Flonase 1 spray NASAL DAILY 01/15/17 09/13/20 History Nasal [place]] Amitriptyline HCl 25 mg PO HS 04/21/20 09/13/20 History Ferrous Sulfate [Slow Fe] 1 tab PO DAILY 04/21/20 09/13/20 History Sertraline HCl [Zoloft] 100 mg PO HS 04/21/20 09/13/20 History Gabapentin 300 mg PO HS 09/13/20 09/13/20 History Furosemide [Lasix] 40 mg PO DAILY #30 tab 09/16/20 Rx Potassium Chloride [K-Dur] 20 meq PO BID 30 Days #60 tab 09/16/20 Rx hydrOXYzine [Atarax] 25 mg PO Q6H PRN #30 tab 09/16/20 Rx - History PMHx: CHF, AFib, HTN, bladder problem unspecified, anxiety w panic attacks PSHx: aortic valve repair, CABG x5 vessels, cholecystectomy FHx: no fam hx of cancers, bleeding disorders Social: Denies TAD. Lives with 86yo whom she takes care of. Daughters involved but do not live with them. - Review of Systems General: reports: fever/chills, fatigue Eyes: denies: vision changes ENT: denies: nasal congestion, rhinorrhea Respiratory: denies: cough, congestion, shortness of breath Cardiovascular: denies: chest pain, edema Gastrointestinal: reports: nausea, vomiting, diarrhea, abdominal pain Genitourinary: denies: dysuria Skin: denies: rashes Musculoskeletal: denies: pain Neurological: reports: syncope, weakness - Vital signs BP: 124/56, Pulse: 78, Resp: 22 - Physical Exam Constitutional: NAD, awake, alert and oriented (A&O x4), well developed HEENT: normocephalic and atraumatic, EOMI, grossly normal vision, grossly normal hearing -HEENT: Dry, cracked tongue on exam. Neck: supple, trachea midline Chest: no-tender to palpation, no lesions Heart: RRR, normal S1/S2, no murmurs/rubs/gallops, pulses present, no edema Lungs: CTAB, no respiratory distress, good air movement Abdomen: soft, non-tender, bowel sounds present, no masses/distention Musculoskeletal: normal structure, normal tone, ROM grossly normal Neurological: no focal deficit Skin: no rash/lesions -Skin: Decreased skin turgor and cap refill Heme/Lymphatic: no purpura, no petechia Psychiatric: normal mood and affect, good judgment and insight, intact recent and remote memory FMR H&P: Results - Labs Result Diagrams: 09/16/20 05:48 09/16/20 15:13 Lab results: TSH 6.34, elevated T4 1.03, nml PT 14.9, elevated. INR, PTT nml Flu A/B, Covid neg FOBT + Type/Screen O+, Ab neg WBC 36.8 thou/uL (4.8-10.8) H 09/12/20 17:16 Hgb 7.8 g/dL (12.0-16.0) L 09/12/20 17:16 Hct 24.8 % (36.0-47.0) L 09/12/20 17:16 MCV 92.9 fL (78.0-98.0) 09/12/20 17:16 Plt Count 275 thou/uL (130-400) 09/12/20 17:16 Band Neuts % (Manual) 35 % (5-11) H 09/12/20 17:16 Sodium 143 mmol/L (136-145) 09/12/20 17:17 Potassium 4.0 mmol/L (3.5-5.1) 09/12/20 17:17 Chloride 112 mmol/L (98-107) H 09/12/20 17:17 Carbon Dioxide 15 mmol/L (23-31) L 09/12/20 17:17 BUN 48 mg/dL (9.8-20.1) H 09/12/20 17:17 Creatinine 1.54 mg/dL (0.6-1.1) H 09/12/20 17:17 Glucose 117 mg/dL (83-110) H 09/12/20 17:17 Lactic Acid 3.2 mmol/L (0.5-2.2) H 09/12/20 17:17 Calcium 8.5 mg/dL (7.8-10.44) 09/12/20 17:17 Total Bilirubin 0.3 mg/dL (0.2-1.2) 09/12/20 17:17 AST 20 U/L (5-34) 09/12/20 17:17 ALT 11 U/L (8-55) 09/12/20 17:17 Alkaline Phosphatase 159 U/L (40-110) H 09/12/20 17:17 Serum Total Protein 6.7 g/dL (6.0-8.3) 09/12/20 17:17 Albumin 3.7 g/dL (3.4-4.8) 09/12/20 17:17 Lipase 20 U/L (8-78) 09/12/20 17:17 - EKG Interpretation EKG: NSR - Radiology Interpretation Chest x-ray Status: image reviewed by me, report reviewed by me (cardiomegaly. valve replacement and sternotomy wires visible. no acute process) CT scan - abdomen Status: report reviewed by me (Fluid-filled, distended cecum c/w diarrhea. Distal transverse colon through rectum show wall thickening and edema, c/w colitis.) FMR H&P: A/P - Plan This is an 84F who presented to the ED for persistent V/D and bloody stools. Melena Work up for GI bleed - Hgb 7.8, previously 11.8. FOBT + - Dark stools, questionable coffee-ground emesis. - Colonoscopy [place] [address] Acevedo: thickened gastric wall with nml bx, diverticula, hemorrhoids, tortuous and redundant colon - EGD in [address] Acevedo: hiatal hernia, focal gastritis - CT abd/pelvis: findings c/w colitis, see below - s/p IV protonix in ED. Continue - NPO pending GI consult in am - Repeat CBC to monitor hgb s/p fluid resuscitation. Will transfuse if <7 - am CBC to monitor hgb. Colitis - CT abd/pelvis findings c/w colitis. Suspect this is the cause of V/D - WBC 37 wth 35% bands - LA 3.2, repeat pending - Procal 0.67 - s/p Cefepime and Flagyl in ED. Continue - am CBC to monitor WBC, bands ROLANDO - BUN 48 with baseline of 20 on chart review - Cr 1.54 with baseline of 1.00 on chart review - No known renal dz hx - Dehydration likely contributing factor. s/p 2.5L NS bolus - LR @ 125mL/h since pt still dry on exam and thirsty - Hold lasix and losartan. Avoid nephrotoxic drugs and renally dose medications - am BMP to monitor Fe deficiency anemia - Throughout her whole life. No clear cause - Hgb on admission lower than on previous admissions - Continue home Fe supplementation - Iron studies ordered Syncopal episode - No fall or injury - Likely 2/2 hypovolemia and anemia - Fall precaution and ambulate with assist orders - PT/OT to eval/treat HFpEF - Echo in 03/2020 showed EF of 60-65% - Monitor fluid status - Caution with fluid resuscitation once euvolemic - Hold home lasix given hypovolemia and ROLANDO AFib - ASA only home anticoag. Hold for now - SCDs for DVT ppx - NSR on admission. Continue diltiazem HTN - Hold home Losartan d/t ROLANDO - Monitor BP and consider prn meds Anxiety - Continue home meds - Consider prn if necessary Dispo: admit to in medical. am GI consult. eLOS >48hrs IVF: LR 125mL/h Diet: NPO pending GI eval DVT ppx: SCDs GI ppx: protonix Code: Full. Palliative consult PCP: Majo/Percy FMJose M H&P: Upper Level - Plan Date/Time: 09/12/202006 IKiesha MD, have evaluated this patient and agree with findings/plan as outlined by international bank manager resident. Pertinent changes/additions are listed here. This is an 84yo F who was brought by EMS to the ER for diarrhea. She reports diarrhea since last night associated with vomiting. Stools were dark which is normal for her. Today, she has continued to have several episodes of diarrhea and nausea with two episodes of non bloody emesis. She has not been eating or drinking normally for a few days. She deneis any CP, SOB, palpitations, fever, chills. Denies recent travel, abx use or sick contacts. Of note, she has a hx of CABG in 2011 and aortic valve report in 2013. PE: no acute distress, well developed, NCAT, EOMI, dry MM, slightly dec cap refill, poor skin turgor, RRR, no murmur, CTAB, abd soft, nontender, no perit alba signs, normal BS, FROM, axox3 Plan: Melena 2/2 GI Bleed associated with anemia and hypotension FOBT +, but on iron. Initially BP of 89/53. Last EGD/colonoscopy done in 2016 - colonoscopy showing hemorrhoids and diverticular disease. EGD showing hiatal hernia and focal gastritis. Biopsy from EGD normal. Hgb 7.8 downtrended from 11 earlier in the year. CT abd showing distended right colon, Wall thickening and some edema within colon wall - c/w colitis. - CBC pending. Hgb of 7.8 and will trend. Will transfuse if <7. - Iron studies pending - Hold ASA - Protonix IV BID - procal 0.67; will continue cefepime and flagyl to cover for colitis - Can consider stool studies if she continues to have episodes of diarrhea - Will consult GI in the AM, patient NPO. Sees Dr. Alvarez. Mod dehydration s/p 1L - Will continue mIVF ROLANDO BUN/Cr above baseline - Will give mIVF, will monitor HFpEF - Echo in Mar 2020, does not seem overloaded. Will continue home meds Tree-in-bud nodularity of CT chest in 2017 - Will need repeat CT chest. Was supposed to follow up in 6-8wks from previous imaging. Can consider getting while here vs outpatient with PCP. Hx of Afib - aware, will hold ASA CAD s/p CABG Follows with Dr. Clark. No active chest pain currently HTN - aware, initially hypotension that has resolved. Dispo: admit to med, inpt Code: FULL - Palliative care consulted to help with advanced directives PCP: Majo Case discussed with Dr. Burroughs Addendum - Attending - Attending Attestation Date/Time: 10/09/20 1535 I personally evaluated the patient and discussed the management with Dr. Mango Lee on 09/12/20. I agree with the History, Examination, Assessment and Plan documented above without any addition or exceptions.
[2020-09-12] MEDS ORDERED: Acetaminophen 650 MG Suppository PR PRN (20:23)
[2020-09-12 20:34] LABS: Lactic Acid 1.4 mmol/L (0.5-2.2)
[2020-09-12] MEDS ORDERED: metroNIDAZOLE 500 MG/100 ML BAG ONE (20:54)
--- NOTE | 2020-09-12 21:12 | CT ---
CT ABDOMEN AND PELVIS PERFORMED WITH CONTRAST ENHANCEMENT: History: Diarrhea, abdominal pain Comparison: 02-25-17 FINDINGS: The lung bases show evidence of air trapping with a more mosaic lung pattern. This was seen on the pr evious exam and is stable. The liver and spleen show no focal abnormalities. Pancreas region appears unremarkable. The gallbladd er has been removed. The extrahepatic duct and some of the intrahepatic ducts are mildly dilated, thi s is probably post cholecystectomy and is stable as compared to the previous study. Right and left adrenal glands appear similar to the previous exam. Angiomyolipoma of the right kidney is stable. Left kidney is unremarkable. 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 The left sided IVC enters at the level of the renal vein. It is smaller than on the right side but it is the venous drainage to the left lower extremity. There is no significant periaortic or mesenteric adenopathy. The cecum is fluid filled and distended, consist ent with diarrheal state. There is a transition to a more decompressed transverse colon and the more distal transverse and descending colon, while not distended, shows evidence for some wall thickening and some mild edema change. This also extends to involve the sigmoid colon to the rectum. There is no pneumatosis identified. No pericolonic inflammatory change. CT OF PELVIS PERFORMED WITH CONTRAST ENHANCEMENT: The appendix region is normal. A pessary is in place. Review of osseous structures show arthritic changes of the spine and hips. IMPRESSION: 1. Fluid filled distended right colon consistent with the history of diarrhea. The transverse and rufino cending and sigmoid colon are all decompressed. However, there is wall thickening and suggestion of s ome edema change within the colon wall even considering the degree of distention. This is more promin ent in the sigmoid colon region but also involves the descending and perhaps to a lesser extent, some of the transverse colon. Changes are consistent with a colitis. No pneumatosis identified. 2. Stable angiomyolipoma of the right kidney. Stable subtle hypodensity involving the left kidney. 3. Post cholecystectomy change. POS: OFF
[2020-09-12] MEDS: Lactated Ringer's 1,000 ML IV SCH (23:39)
[2020-09-13 00:07] LABS: Reticulocyte Count 4.1 % (0.5-1.5)
[2020-09-13 00:25] LABS: Iron 9 ug/dL (50-170); Iron Binding Capacity, Total 215 mcg/dL (265-497)
[2020-09-13 00:40] LABS: Hemoglobin 6.6 g/dL (12.0-16.0); Mean Corpuscular HGB CONC 32.7 g/dL (32.0-36.0); Mean Corpuscular Hemoglobin 30.3 pg (27.0-31.0); Mean Corpuscular Volume 92.5 fL (78.0-98.0); Mean Platelet Volume 7.6 fL (7.4-10.4); Platelet Count 209 thou/uL (130-400); RBC Distribution Width 12.6 % (11.5-14.5); Red Blood Cell (RBC) Count 2.17 mill/uL (4.20-5.40); White Blood Cell (WBC) Count 32.2 thou/uL (4.8-10.8)
[2020-09-13 00:49] LABS: Band 19 % (5-11); Lymphocytes 1 % (21-51); MDiff Complete? YES; Monocytes 2 % (0-10); Neutrophil 78 % (42-75)
[2020-09-13] MEDS ORDERED: diphenhydrAMINE 25 MG CAP PO PRN (01:07)
[2020-09-13] MEDS ORDERED: hydrOXYzine 10 MG TAB PO PRN (02:30)
[2020-09-13] MEDS: metroNIDAZOLE 500 MG in Premix Bag 1 BAG IVPB SCH ×3 (03:04→20:38)
[2020-09-13] MEDS: Melatonin 3 MG TAB PO PRN (03:04)
[2020-09-13] MEDS: Lactated Ringer's 1,000 ML IV SCH ×3 (05:25→21:45)
[2020-09-13] MEDS: Levothyroxine Sodium 75 MCG TAB PO SCH (05:25)
--- NOTE | 2020-09-13 07:10 | PDOC.FM ---
- Subjective Subjective: Patient resting comfortably in bed. Denies abdominal pain, CP, N/V, diarrhea, dark stool. States she feels much better than she did on admission - Objective MAR Reviewed: Yes Vital Signs & Weight: Vital Signs (12 hours) Temp Pulse Pulse Resp BP BP Pulse Ox 09/13/20 04:00 98.6 F 98 20 152/60 H 100 09/13/20 01:50 98.4 F 94 20 136/73 97 09/13/20 01:30 98.6 F 109 H 20 145/58 H 97 09/12/20 23:30 95 09/12/20 23:05 98.6 F 110 H 20 150/60 H 95 Weight Weight 52.787 kg I&O: 09/12/20 09/13/20 09/14/20 06:59 06:59 06:59 Intake Total 1675 Balance 1675 Result Diagrams: 09/13/20 08:45 09/13/20 08:44 Phys Exam - Physical Examination Constitutional: NAD HEENT: moist MMs Neck: no JVD, supple Respiratory: no wheezing, no rales Cardiovascular: RRR systolic murmur appreciated on exam Gastrointestinal: soft, non-tender, no distention, positive bowel sounds Musculoskeletal: no edema, pulses present Neurological: normal sensation, moves all 4 limbs Psychiatric: normal affect, A&O x 3 Dx/Plan - Plan Plan: This is an 84F who presented to the ED for persistent V/D and bloody stools. Differential: GI bleed vs infectious colitis Melena Work up for GI bleed - Hgb 7.8, previously 11.8. FOBT + - Dark stools, questionable coffee-ground emesis. - Colonoscopy [place] [address] Acevedo: thickened gastric wall with nml bx, diverticula, hemorrhoids, tortuous and redundant colon - EGD in [address] Acevedo: hiatal hernia, focal gastritis - CT abd/pelvis: findings c/w colitis, see below - s/p IV protonix in ED. Continue BID for ppx - NPO pending GI consult - s/p 1 unit pRBCs Hgb 6.6, goal >8 given cardiac history - am CBC to monitor hgb Colitis - CT abd/pelvis findings c/w colitis. Suspect this is the cause of V/D - WBC 37 wth 35% bands - LA 3.2, repeat pending - Procal 0.67 - s/p Cefepime and Flagyl in ED. Continue - am CBC to monitor WBC, bands ROLANDO - BUN 48 with baseline of 20 on chart review - Cr 1.54 with baseline of 1.00 on chart review - No known renal dz hx - Dehydration likely contributing factor. s/p 2.5L NS bolus - LR @ 125mL/h since pt still dry on exam and thirsty - Hold lasix and losartan. Avoid nephrotoxic drugs and renally dose medications - am BMP to monitor Fe deficiency anemia - Throughout her whole life. No clear cause - Hgb on admission lower than on previous admissions - Continue home Fe supplementation - Iron studies ordered Syncopal episode - No fall or injury - Likely 2/2 hypovolemia and anemia - Fall precaution and ambulate with assist orders - PT/OT to eval/treat HFpEF - Echo in 03/2020 showed EF of 60-65% - Monitor fluid status - Caution with fluid resuscitation once euvolemic - Hold home lasix given hypovolemia and ROLANDO AFib - ASA only home anticoag. Hold for now for likely GI bleed - SCDs for DVT ppx - NSR on admission. Continue diltiazem HTN - Hold home Losartan d/t ROLANDO - Monitor BP and consider prn meds Anxiety - Continue home meds - Consider prn if necessary Dispo: admit to inpt medical. am GI consult. eLOS >48hrs IVF: LR 125mL/h Diet: NPO pending GI eval DVT ppx: SCDs GI ppx: protonix BID Code: Full. Palliative consult PCP: Majo/Percy Addendum - Attending - Attending Attestation Date/Time: 09/13/20 0973 I personally evaluated the patient and discussed the management with Dr. Palm. I agree with the History, Examination, Assessment and Plan documented above with any addition or exceptions noted below. I am doubtful of colitis and no obvious diverticulitis on ct scan. Await GI consultation.
[2020-09-13] MEDS: Ferrous Sulfate 325 MG TAB PO SCH (08:41)
[2020-09-13] MEDS: Pantoprazole 40 MG VIAL IVP SCH ×2 (08:43→20:41)
[2020-09-13] MEDS: Potassium Chloride 20 MEQ TAB PO SCH (08:43)
[2020-09-13 08:59] LABS: #Lymphocytes 1.4 thou/uL (1.20-3.40); #Monocytes 1.3 thou/uL (0.11-0.59); #Neutrophils 25.2 thou/uL (1.40-6.50); %Monocytes 4.7 % (0.0-10.0); %Neutrophils 90.2 % (42.0-75.0); Hemoglobin 7.5 g/dL (12.0-16.0); Mean Corpuscular HGB CONC 32.4 g/dL (32.0-36.0); Mean Corpuscular Hemoglobin 29.1 pg (27.0-31.0); Mean Corpuscular Volume 89.9 fL (78.0-98.0); Mean Platelet Volume 7.8 fL (7.4-10.4); Platelet Count 186 thou/uL (130-400); RBC Distribution Width 15.7 % (11.5-14.5); Red Blood Cell (RBC) Count 2.56 mill/uL (4.20-5.40); White Blood Cell (WBC) Count 27.9 thou/uL (4.8-10.8)
[2020-09-13] MEDS ORDERED: FLU VACC QS2020-21(65YR UP)/PF 240 MCG/0.7 ML SYRINGE IM ONE (09:00)
[2020-09-13 09:07] LABS: Anion Gap 15 mmol/L (10-20); BUN (Urea Nitrogen) 30 mg/dL (9.8-20.1); Calc. Creatinine Clearance 37 mL/min (70-130); Calcium 7.6 mg/dL (7.8-10.44); Carbon Dioxide 17 mmol/L (23-31); Chloride 118 mmol/L (98-107); Glucose 107 mg/dL (83-110); Potassium 3.5 mmol/L (3.5-5.1); Sodium 146 mmol/L (136-145)
[2020-09-13] MEDS: Fluticasone Propionate Nasal Spray 16 gm Bottle NASAL SCH (10:08)
[2020-09-13] MEDS ORDERED: GoLYTELY 4,000 ml Bottle PO SCH (17:00)
--- NOTE | 2020-09-13 20:19 | CON ---
DATE OF CONSULTATION: 09/13/2020 CHIEF COMPLAINT: Anemia. HISTORY OF PRESENT ILLNESS: Ms. Hernandez is an 84-year-old woman who was admitted yesterday after she developed an acute episode of weakness and presyncopal symptoms. She had a loose stool yesterday twice. She has had no nausea or vomiting or abdominal pain or blood in the stool or weight changes. She has had dark stools, on iron supplementation. She had EGD in December of [address] Alvarez, which showed some gastritis and a hiatal hernia. Colonoscopy revealed sigmoid diverticulosis and hemorrhoids and a tortuous colon. PAST MEDICAL HISTORY: Hypertension, atrial fibrillation. PAST SURGICAL HISTORY: Cholecystectomy, upper and lower endoscopy in 2017, aortic valve repair, and coronary artery bypass graft. FAMILY HISTORY: Negative for GI malignancy. SOCIAL HISTORY: No alcohol, tobacco, or drugs. ALLERGIES: ERYTHROMYCIN, PENICILLIN, SULFA, TETRACYCLINE, AND VANCOMYCIN. MEDICATIONS: Prior to admission; 1. Gabapentin. 2. Losartan. 3. Levothyroxine. 4. Sertraline. 5. Potassium furosemide. 6. Flonase nasal spray. 7. Iron sulfate. 8. Diltiazem. 9. Aspirin. 10. Amitriptyline. REVIEW OF SYSTEMS: Negative x10 systems reviewed except as stated in History of Present Illness. PHYSICAL EXAMINATION: VITAL SIGNS: Temperature 98.9, blood pressure 148/58, and pulse 87. GENERAL: She is in no acute distress. Alert and oriented x3. LUNGS: Clear to auscultation bilaterally. HEART: Regular rate and rhythm without murmur. ABDOMEN: Soft, nontender, and nondistended. Bowel sounds are present. EXTREMITIES: No lower extremity edema. NEUROLOGIC: Cranial nerves are grossly intact. LABORATORY DATA: White blood cell count 27.9, hemoglobin 7.5, and I believe that is after 1 unit with a pretransfusion hemoglobin is 6.6. She received another unit after that transfusion. Platelets 186. INR 1.1, creatinine 0.95, iron 9, TIBC 215, ferritin 46.35. CRP 8. IMAGING: She had a CT scan of the abdomen and pelvis that showed some questionable thickening of the sigmoid and rectum and descending and possibly transverse colon. IMPRESSION: 1. Anemia. She has multifactorial anemia with low iron, low TIBC, mid-range ferritin, and high CRP. It is likely anemia of chronic disease; however given the low iron in the significant anemia, requiring transfusion and ferritin in the 40s, she likely also has a component of iron deficiency anemia. She has been on iron supplement, which could have falsely elevated her iron studies. She had a negative EGD and colonoscopy back in 2017. However, followup exam was indicated at this point given the symptomatic presentation of her anemia. 2. History of atrial fibrillation. 3. Symptomatic iron deficiency anemia. 4. Thickening of the CT scan in the left colon could be due to mild ischemic changes, but more likely were just non-distention. She has not had ongoing diarrhea or any rectal bleeding. RECOMMENDATIONS: EGD and colonoscopy tomorrow. Of note, she was mentioned to have a tortuous redundant colon back when Dr. Alvarez did her colonoscopy in 2017. Job ID: [id number]
[2020-09-13] MEDS: Amitriptyline HCl 25 MG TAB PO SCH (20:40)
[2020-09-13] MEDS: Gabapentin 300 MG CAP PO SCH (20:45)
[2020-09-13] MEDS ORDERED: Cefepime 2 GM in Sodium Chloride 0.9% 100 ML IVPB SCH (21:00)
[2020-09-13 21:15] LABS: Hemoglobin 8.4 g/dL (12.0-16.0)
[2020-09-14] MEDS: metroNIDAZOLE 500 MG in Premix Bag 1 BAG IVPB SCH (04:16)
[2020-09-14] MEDS: Levothyroxine Sodium 75 MCG TAB PO SCH (05:51)
--- NOTE | 2020-09-14 06:29 | PDOC.FM ---
- Subjective Subjective: Pt resting in bed this morning. She states she is anxious at baseline and would love it if she could get something to help - Objective MAR Reviewed: Yes Vital Signs & Weight: Vital Signs (12 hours) Temp Pulse Resp BP Pulse Ox 09/14/20 06:06 98.4 F 93 18 149/62 H 95 09/14/20 01:24 98.5 F 100 20 133/57 L 94 L 09/13/20 22:25 98 09/13/20 22:19 84 L 09/13/20 21:00 98.6 F 88 18 155/65 H 97 Weight Weight 52.787 kg I&O: 09/12/20 09/13/20 09/14/20 06:59 06:59 06:59 Intake Total 1675 1325 Balance 1675 1325 Result Diagrams: 09/14/20 06:10 09/14/20 06:10 Phys Exam - Physical Examination Constitutional: NAD mildly anxious on exam HEENT: moist MMs Neck: supple Respiratory: no wheezing, clear to auscultation bilateral Cardiovascular: RRR, no significant murmur Gastrointestinal: soft, non-tender, positive bowel sounds Musculoskeletal: no edema, pulses present Neurological: moves all 4 limbs Psychiatric: normal affect, A&O x 3 Skin: normal turgor Dx/Plan - Plan Plan: This is an 84F who presented to the ED for persistent V/D and bloody stools. Melena Work up for GI bleed - Hgb 7.8, previously 11.8. FOBT + - Dark stools, questionable coffee-ground emesis. - Colonoscopy [place] [address] Acevedo: thickened gastric wall with nml bx, diverticula, hemorrhoids, tortuous and redundant colon - EGD in [address] Acevedo: hiatal hernia, focal gastritis - CT abd/pelvis: findings c/w colitis, see below - s/p IV protonix in ED. Continue BID for ppx - NPO pending GI consult : plan for EGD and colonoscopy 09/14 - s/p 1 unit pRBCs Hgb 6.6, goal >8 given cardiac history - am CBC to monitor hgb Colitis - CT abd/pelvis findings c/w colitis. - WBC 37 wth 35% bands, improving - LA 3.2, repeat WNL - Procal 0.67, repeat pending - s/p Cefepime and Flagyl in ED. Continued but d/c on 09/14. Patient has no abdominal pain - am CBC to monitor WBC, bands ROLANDO, improved - BUN 48 with baseline of 20 on chart review - Cr 1.54 with baseline of 1.00 on chart review - No known renal dz hx - Dehydration likely contributing factor. s/p 2.5L NS bolus - LR @ 125mL/h since pt still dry on exam and thirsty - Hold lasix and losartan. Avoid nephrotoxic drugs and renally dose medications - am BMP to monitor Fe deficiency anemia - Throughout her whole life. No clear cause - Hgb on admission lower than on previous admissions - Continue home Fe supplementation - Iron studies show mixed picture Syncopal episode - No fall or injury - Likely 2/2 hypovolemia and anemia - Fall precaution and ambulate with assist orders - PT/OT to eval/treat HFpEF - Echo in 03/2020 showed EF of 60-65% - Monitor fluid status - Caution with fluid resuscitation once euvolemic - Hold home lasix given hypovolemia and ROLANDO AFib - ASA only home anticoag. Hold for now for likely GI bleed - SCDs for DVT ppx - NSR on admission. Continue diltiazem HTN - Hold home Losartan d/t ROLANDO - Monitor BP and consider prn meds Anxiety - Continue home meds - Atarax PRN Dispo: admit to inpt medical. Pending GI recs. eLOS >48hrs IVF: LR 125mL/h Diet: NPO pending EGD and colonoscopy DVT ppx: SCDs GI ppx: protonix BID Code: Full. Palliative consult PCP: Majo/Percy Addendum - Attending - Attending Attestation Date/Time: 09/14/20 1143 I personally evaluated the patient and discussed the management with Dr. Palm. I agree with the History, Examination, Assessment and Plan documented above with any addition or exceptions noted below. Await endo results. She is tachypneic with wheezing p endo. Will get CXR and give nebs. May need to r/o CHF as well.
[2020-09-14 06:50] LABS: Hemoglobin 8.2 g/dL (12.0-16.0); Mean Corpuscular HGB CONC 32.3 g/dL (32.0-36.0); Mean Corpuscular Hemoglobin 29.8 pg (27.0-31.0); Mean Platelet Volume 8.2 fL (7.4-10.4); Platelet Count 169 thou/uL (130-400); RBC Distribution Width 15.5 % (11.5-14.5); Red Blood Cell (RBC) Count 2.74 mill/uL (4.20-5.40); White Blood Cell (WBC) Count 25.2 thou/uL (4.8-10.8)
[2020-09-14 07:00] LABS: Anion Gap 13 mmol/L (10-20); BUN (Urea Nitrogen) 16 mg/dL (9.8-20.1); Calc. Creatinine Clearance 49 mL/min (70-130); Carbon Dioxide 21 mmol/L (23-31); Chloride 113 mmol/L (98-107); Glucose 105 mg/dL (83-110); Potassium 3.5 mmol/L (3.5-5.1); Sodium 143 mmol/L (136-145)
[2020-09-14] MEDS ORDERED: hydrOXYzine 25 MG TAB PO PRN ×2 (07:26→09:17)
[2020-09-14] MEDS: Lactated Ringer's 1,000 ML IV SCH (07:56)
[2020-09-14 08:15] LABS: Band 5 % (5-11); Lymphocytes 2 % (21-51); MDiff Complete? YES; Monocytes 5 % (0-10); Neutrophil 88 % (42-75); Ovalocytes SLIGHT = 2-5 cells (100X) (0-1/hpf); Platelet Morphology Comment Appears Adequate; Polychromasia SLIGHT = 2-3 cells (100X) (0-2/hpf)
[2020-09-14] MEDS ORDERED: Ondansetron HCl/PF 4 MG/2 ML Vial IVP PRN (09:26)
[2020-09-14] MEDS ORDERED: Promethazine HCl 25 MG/ML VIAL SLOW IVP PRN (09:26)
[2020-09-14] MEDS ORDERED: Promethazine HCl 25 MG/ML VIAL IM PRN (09:26)
--- NOTE | 2020-09-14 09:49 | OP ---
DATE OF PROCEDURE: 09/14/2020 RN INTERVENTIONAL SURGEON: None. PROCEDURES PERFORMED: 1. Esophagogastroduodenoscopy with biopsies. 2. Colonoscopy with biopsies. INDICATIONS: 1. Anemia, mixed iron deficiency and anemia of chronic disease. 2. Possible melena. 3. Abnormal CT scan, suggesting thickening in the left colon. MEDICATIONS: See Anesthesia record. FINDINGS: After discussion of the risks, benefits, and alternatives of the procedure, informed consent was obtained and witnessed. Pre-endoscopic cardiopulmonary examination was satisfactory. Time-out was performed before sedation was achieved. Sedation was achieved with Anesthesia assistance in the endoscopy unit. A Pentax adult upper endoscope was placed into the oropharynx and passed through the cricopharyngeus under direct visualization. The esophageal mucosa appeared normal throughout. The endoscope was advanced into the stomach. Forward and retroflexed views of the entire gastric mucosa were obtained. There was some mild erosive gastritis with several shallow nonbleeding erosions in the gastric body. There was no evidence of bleeding and no high-risk stigmata for bleeding. Biopsies were obtained from the gastric antrum and body to rule out H pylori infection. The endoscope was then advanced through the pylorus and into the first and second portions of the duodenum, which appeared normal. The upper endoscope was completely withdrawn and the patient was repositioned. Digital rectal exam was performed. The patient has poor external anal sphincter tone as well as small external hemorrhoidal tissue. A Pentax adult colonoscope was inserted into the anus and passed forward to the cecum in the usual fashion. The cecal base was identified by the appendiceal orifice as well as the ileocecal valve. The terminal ileum was intubated. The ileal mucosa appeared normal. The colonoscope was slowly withdrawn in a gradual circumferential manner with careful examination of the entire colonic mucosa. The quality of the prep was good. The colonic mucosa appeared normal in the cecum, ascending colon, transverse colon, and proximal descending colon. There was evidence of colitis involving the rectum and sigmoid colon. This was moderate in severity and patchy from 20 to 40 cm, but from 0 to 20 cm, this was more severe and confluent with multiple shallow ulcerations. Overall, the appearance seems most suggestive of distal ulcerative colitis. Multiple biopsies were obtained from the left colon for histology. I did not perform retroflexion in the rectum due to the severity of the inflammation and edema in the area. There was also some mild diverticulosis noted in the sigmoid colon with no evidence of diverticulitis. The colonoscope was completely withdrawn and the patient allowed to recover. The patient tolerated the procedure well. There were no immediate postprocedure complications. IMPRESSION: 1. Erosive gastritis, mild, nonbleeding. Gastric biopsies obtained. 2. Severe rectosigmoid colitis. Severe and confluent with shallow ulcerations from 0 to 20 cm, moderate and patchy from 20 to 40 cm. 3. Normal colonic mucosa throughout the transverse and ascending colon and cecum as well as terminal ileum. 4. Sigmoid diverticulosis. RECOMMENDATIONS: 1. Follow up pathology on the gastric and left colon biopsies. 2. Obtain stool studies for infectious pathogens. 3. Advance diet. Job ID: [id number]
[2020-09-14] MEDS ORDERED: Lidocaine 1% PF 5 ML VIAL ONE (10:05)
[2020-09-14] MEDS ORDERED: PROPOFOL 200 MG/20 ML VIAL ONE (10:05)
[2020-09-14] MEDS: Potassium Chloride 20 MEQ TAB PO SCH (10:28)
[2020-09-14] MEDS: Pantoprazole 40 MG VIAL IVP SCH ×2 (10:29→20:46)
[2020-09-14] MEDS: Fluticasone Propionate Nasal Spray 16 gm Bottle NASAL SCH (10:29)
[2020-09-14] MEDS: Ferrous Sulfate 325 MG TAB PO SCH (10:29)
[2020-09-14] MEDS ORDERED: Furosemide 20 MG/2 ML VIAL SLOW IVP SCH ×3 (11:45→12:15)
--- NOTE | 2020-09-14 11:59 | RAD ---
EXAM: XR Chest 1 View Portable PROVIDED CLINICAL HISTORY: Portable chest COMPARISON: 09/12/2020 FINDINGS: Cardiac silhouette remains enlarged. Median sternotomy changes are redemonstrated. Interval developme nt of pulmonary vascular congestion and diffuse bilateral airspace disease. Blunting of the left costophrenic angle may reflect pleural fluid. There is no evidence for pneumothorax. IMPRESSION: Findings suggesting congestive failure with alveolar edema. Correlate with concerns for pneumonia.
--- NOTE | 2020-09-14 13:39 | PQF ---
CLINICAL DOCUMENTATION CLARIFICATION FORM: Dear Dr. Palm Date: 09/14/20 Please exercise your independent, professional judgment in responding to the clarification form. Clinical indicators are provided on the bottom of this form for your review. Please check appropriate box(es) to clarify if the following diagnosis has been ruled in our ruled out: SEPSIS [ ] Ruled in diagnosis [ ] Continue to treat [ ] Resolved [x ] Ruled out diagnosis [ ] Improving [ ] Cannot rule out diagnosis [ ] Other diagnosis [ ] Unable to determine In addition, please specify: Present on Admission (POA): [ ] Yes [ x] No [ ] Unable to determine For continuity of documentation, please document condition throughout progress notes and discharge summary. Thank You. To be completed by CDI/Coding staff for physician review: CLINICAL INDICATORS - SIGNS / SYMPTOMS / LABS / RESULTS AND LOCATION IN MR ER NOTE: "SEPSIS" WBC 09/12: 36.8 BANDS 09/12: 35 LACTIC ACID 09/12: 3.2 RISK FACTORS / RESULTS AND LOCATION IN MR PERSISTENT VOMITING AND DIARRHEA (ER NOTE) COLITIS (PN 09/14- LIGHT) TREATMENTS / RESULTS AND LOCATION IN MR BLOOD AND STOOL CULTURES 09/12 IV FLAGYL (ER-09/14) IV CEFEPIME (ER- 09/13) IV FLUIDS (ER) CDS Signature: Jeannette Edmonds RN Phone #: [phone] Date: 09/14/20 This is a permanent part of the Medical Record [facility]
--- NOTE | 2020-09-14 13:50 | PQF ---
CLINICAL DOCUMENTATION CLARIFICATION FORM: Dear Dr. Palm Date: 09/14/20 Please exercise your independent, professional judgment in responding to the clarification form. Clinical indicators are provided on the bottom of this form for your review. Please check appropriate box(es): HEART FAILURE: A. ACUITY [ x ] Acute [ ] Acute on Chronic [ ] Chronic B. TYPE: [ ] Systolic / HFrEF [ ] Diastolic / HFpEF [ ] Combined Systolic / Diastolic [ ] Hypertensive Heart and Kidney disease [ ] Hypertensive Heart Disease [ ] Hypertensive Kidney Disease [ ] Other diagnosis [x ] Unable to determine In addition, please specify: Present on Admission (POA): [ ] Yes [ x ] No [ ] Unable to determine For continuity of documentation, please document condition throughout progress notes and discharge summary. Thank You. To be completed by CDI/Coding staff for physician review: CLINICAL INDICATORS - SIGNS / SYMPTOMS / LABS / RESULTS AND LOCATION IN EMR PN 09/14 (LIGHT): "HFpEF- ECHO IN 2019 SHOWED EF 60-65%" CHEST XRAY 09/14: "FINDINGS SUGGESTIVE OF CONGESTIVE HEART FAILURE WITH ALVEOLAR EDEMA" RISKS FACTORS / RESULTS AND LOCATION IN EMR HTN (PN 09/14- LIGHT) AFIB (PN 09/14- LIGHT) ROLANDO (PN 09/14- LIGHT) TREATMENTS / RESULTS AND LOCATION IN EMR MONITOR FLUID STATUS (PN 09/14- LIGHT) CAUTION WITH FLUID RESUSCITATION (PN 09/14-LIGHT) IV LASIX ORDERED 09/14 CDS Signature: Jeannette Edmonds RN Phone #: [phone] Date: 09/14/20 This is a permanent part of the Medical Record [facility]
[2020-09-14] MEDS: Acetaminophen 325 MG TAB PO PRN (17:00)
[2020-09-14] MEDS: Gabapentin 300 MG CAP PO SCH (20:46)
[2020-09-14] MEDS: Amitriptyline HCl 25 MG TAB PO SCH (20:46)
[2020-09-15] MEDS: Levothyroxine Sodium 75 MCG TAB PO SCH (05:34)
[2020-09-15 05:52] LABS: #Eosinphils 0.4 thou/uL (0.0-0.7); #Lymphocytes 1.1 thou/uL (1.20-3.40); #Monocytes 1.2 thou/uL (0.11-0.59); #Neutrophils 14.9 thou/uL (1.40-6.50); %Basophils 0.1 % (0.0-1.0); %Eosinophils 2.5 % (0.0-10.0); %Lymphocytes 6.1 % (21.0-51.0); %Monocytes 6.8 % (0.0-10.0); %Neutrophils 84.6 % (42.0-75.0); Hemoglobin 8.4 g/dL (12.0-16.0); Mean Corpuscular HGB CONC 32.4 g/dL (32.0-36.0); Mean Corpuscular Hemoglobin 29.6 pg (27.0-31.0); Mean Corpuscular Volume 91.5 fL (78.0-98.0); Platelet Count 182 thou/uL (130-400); RBC Distribution Width 15.4 % (11.5-14.5); Red Blood Cell (RBC) Count 2.85 mill/uL (4.20-5.40); White Blood Cell (WBC) Count 17.6 thou/uL (4.8-10.8)
[2020-09-15 06:17] LABS: Anion Gap 10 mmol/L (10-20); BUN (Urea Nitrogen) 12 mg/dL (9.8-20.1); Calc. Creatinine Clearance 51 mL/min (70-130); Calcium 8.2 mg/dL (7.8-10.44); Carbon Dioxide 23 mmol/L (23-31); Chloride 110 mmol/L (98-107); Glucose 94 mg/dL (83-110); Potassium 3.3 mmol/L (3.5-5.1); Sodium 140 mmol/L (136-145)
--- NOTE | 2020-09-15 06:20 | PDOC.FM ---
- Subjective Subjective: Patient very anxious. Satting 82% on RA. Put O2 NC back on and satting 100%. Endorses SOB. Crackles on exam, improved edema from yesterday after IV Lasix. Ordered stat XR, IV [id number] and DuoNeb. Likely acute CHF exacerbation. Patient only endorses SOB, no melena or N/V or CP. - Objective MAR Reviewed: Yes Vital Signs & Weight: Vital Signs (12 hours) Temp Pulse Resp BP Pulse Ox 09/15/20 05:46 98.6 F 94 18 170/74 H 100 09/14/20 20:40 98.6 F 95 18 137/66 98 Weight Weight 53.297 kg I&O: 09/13/20 09/14/20 09/15/20 06:59 06:59 06:59 Intake Total 1675 1325 1315 Balance 1675 1325 1315 Result Diagrams: 09/15/20 05:32 09/15/20 05:32 Phys Exam - Physical Examination anxious HEENT: moist MMs Neck: supple crackles and wheezing diffusely mildly tachycardic to 101 Gastrointestinal: soft, non-tender, positive bowel sounds Musculoskeletal: no edema, pulses present Neurological: normal sensation, moves all 4 limbs Psychiatric: A&O x 3 Skin: normal turgor Dx/Plan - Plan Plan: This is an 84F who presented to the ED for persistent V/D and bloody stools. HFpEF, exacerbation - Echo in 03/2020 showed EF of 60-65% -CXR suggestive of volume overload - Monitor fluid status, strict I/Os -repeat echo pending - Caution with fluid resuscitation once euvolemic - hold home lasix for now. Continue IV diuresis Melena Work up for GI bleed - Hgb 7.8, previously 11.8. FOBT + - Dark stools, questionable coffee-ground emesis. - Colonoscopy [place] [address] Acevedo: thickened gastric wall with nml bx, diverticula, hemorrhoids, tortuous and redundant colon - EGD in [address] Acevedo: hiatal hernia, focal gastritis - CT abd/pelvis: findings c/w colitis, see below - s/p IV protonix in ED. Continue BID for ppx - EGD and colonoscopy 09/14: erosive gastritis, rectosigmoid colitis. Follow up biopsies, stool studies, and GI recs - s/p 1 unit pRBCs Hgb 6.6, goal >8 given cardiac history - am CBC to monitor hgb Colitis - CT abd/pelvis findings c/w colitis. - WBC 37 wth 35% bands, improving - LA 3.2, repeat WNL - Procal elevated but improved from yesterday - s/p Cefepime and Flagyl in ED. Continued but d/c on 09/14. Patient has no abdominal pain. GI agrees with no Abx at this time - am CBC to monitor WBC, bands ROLANDO, resolved - BUN 48 with baseline of 20 on chart review - Cr 1.54 with baseline of 1.00 on chart review - No known renal dz hx - Dehydration likely contributing factor. s/p 2.5L NS bolus - am BMP to monitor Fe deficiency anemia - Throughout her whole life. No clear cause - Hgb on admission lower than on previous admissions - Continue home Fe supplementation - Iron studies show mixed picture Syncopal episode - No fall or injury - Likely 2/2 hypovolemia and anemia - Fall precaution and ambulate with assist orders - PT/OT to eval/treat AFib - ASA only home anticoag. Hold for now for likely GI bleed - SCDs for DVT ppx - NSR on admission. Continue diltiazem HTN - Hold home Losartan d/t ROLANDO - Monitor BP and consider prn meds Anxiety - Continue home meds - Atarax PRN Dispo: admit to inpt medical. Pending GI recs. eLOS >48hrs. Pending echo. Monitor respiratory and fluid status. Patient much improved after diuresis IVF: KVO Diet: HH DVT ppx: SCDs GI ppx: protonix BID Code: Full. Palliative consult PCP: [place] Addendum - Attending - Attending Attestation Date/Time: 09/15/20 5430 I personally evaluated the patient and discussed the management with Dr. Palm. I agree with the History, Examination, Assessment and Plan documented above with any addition or exceptions noted below. New diagnosis of HF exac today. Will give lasix and reeval.
[2020-09-15] MEDS ORDERED: Potassium Phosphate 15 MMOL in Sodium Chloride 0.9% 250 ML 250 ML IVPB SCH (07:45)
[2020-09-15] MEDS ORDERED: Furosemide 40 MG/4 ML VIAL SLOW IVP SCH ×3 (07:45→13:00)
--- NOTE | 2020-09-15 07:51 | RAD ---
Chest one view HISTORY: Dyspnea. COMPARISON: 09/14/2020. FINDINGS: Cardiac silhouette is magnified and enlarged. Pulmonary vasculature remains engorged. Mediastinum is midline with postoperative changes. Bilateral perihilar and bibasilar infiltrates are similar in appearance to the prior study. Lungs are otherwise hyperinflated. No evidence of pneumothorax. Postoperative changes right shoulder again demonstrated. IMPRESSION : Pulmonary vascular congestion/edema, and other findings are stable.
[2020-09-15 07:58] LABS: Magnesium 1.8 mg/dL (1.6-2.6)
[2020-09-15 08:04] LABS: Phosphorus 1.7 mg/dL (2.3-4.7)
[2020-09-15] MEDS ORDERED: Furosemide 20 MG TAB PO SCH (09:00)
[2020-09-15] MEDS: Pantoprazole 40 MG VIAL IVP SCH ×2 (09:09→20:10)
[2020-09-15] MEDS: Ferrous Sulfate 325 MG TAB PO SCH (09:09)
[2020-09-15] MEDS: Potassium Chloride 20 MEQ TAB PO SCH (09:12)
[2020-09-15] MEDS: Fluticasone Propionate Nasal Spray 16 gm Bottle NASAL SCH (09:59)
[2020-09-15] MEDS: Amitriptyline HCl 25 MG TAB PO SCH (20:06)
[2020-09-15] MEDS: Gabapentin 300 MG CAP PO SCH (20:06)
--- NOTE | 2020-09-15 20:15 | PRG ---
DATE OF SERVICE: 09/15/2020 SUBJECTIVE: Ms. Hernandez has had no bowel movement since her colonoscopy. She has no abdominal pain. She is tolerating a solid diet. OBJECTIVE: VITAL SIGNS: Temperature 97.9, pulse 97, and blood pressure 149/65. GENERAL: She is in no acute distress. Awake and alert. LUNGS: Clear to auscultation bilaterally. HEART: Regular rate and rhythm without murmur. ABDOMEN: Soft, nontender, nondistended. Bowel sounds are present. EXTREMITIES: No lower extremity edema. IMPRESSION: Ischemic colitis. 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 She has had no further symptoms. She has had stool studies ordered, but has not been able to produce a sample as she has had no further bowel movements since her bowel prep. Her hemoglobin is stable without signs of overt bleeding. Her creatinine has improved since admission, which again was likely prerenal from the same process that increased her risk for ischemic colitis with low perfusion state. RECOMMENDATIONS: 1. She is tolerating a solid diet. 2. Primary treatment is optimization of her fluid status. She has had an echocardiogram planned. 3. She can follow up in GI Clinic with me in a couple of weeks to reassess her symptoms. If she develops chronic symptoms, then we will consider the possibility of inflammatory bowel disease further. In the meantime, we will review her CT scan with Radiology and if the inferior mesenteric artery and vein cannot be well evaluated, then we will consider CT angiogram. 4. She can likely restart anticoagulation if needed at this point. 5. I will sign off for now. Please call if GI can be of assistance. Job ID: [id number]
[2020-09-15] MEDS: Melatonin 3 MG TAB PO PRN (23:19)
[2020-09-15] MEDS: Acetaminophen 325 MG TAB PO PRN (23:20)
--- NOTE | 2020-09-16 05:30 | PDOC.FM ---
- Subjective Subjective: Patient resting comfortably on RA. No complaints this morning. - Objective MAR Reviewed: Yes Vital Signs & Weight: Vital Signs (12 hours) Temp Pulse Resp BP Pulse Ox 09/16/20 00:00 98.4 F 92 18 128/54 L 93 L 09/15/20 20:00 98.5 F 95 20 103/63 98 Weight Weight 53.297 kg I&O: 09/14/20 09/15/20 09/16/20 06:59 06:59 06:59 Intake Total 1325 1315 1460 Balance 1325 1315 1460 Result Diagrams: 09/16/20 05:48 09/16/20 05:48 Phys Exam - Physical Examination Constitutional: NAD HEENT: moist MMs Neck: no JVD, supple Respiratory: no wheezing, clear to auscultation bilateral Cardiovascular: RRR, no significant murmur Gastrointestinal: soft, non-tender, positive bowel sounds Musculoskeletal: pulses present 1+ pitting edema b/l extremities Neurological: moves all 4 limbs Psychiatric: A&O x 3 Skin: no rash, normal turgor Dx/Plan - Plan Plan: This is an 84F who presented to the ED for persistent V/D and bloody stools. HFpEF, exacerbation - Echo in 03/2020 showed EF of 60-65% -CXR suggestive of volume overload - Monitor fluid status, strict I/Os -repeat echo pending - Caution with fluid resuscitation once euvolemic - hold home lasix for now. Continue IV diuresis Melena Work up for GI bleed - Hgb 7.8, previously 11.8. FOBT + - Dark stools, questionable coffee-ground emesis. - Colonoscopy [place] [address] Acevedo: thickened gastric wall with nml bx, diverticula, hemorrhoids, tortuous and redundant colon - EGD in [address] Acevedo: hiatal hernia, focal gastritis - CT abd/pelvis: findings c/w colitis, see below - s/p IV protonix in ED. Continue BID for ppx - EGD and colonoscopy 09/14: erosive gastritis, rectosigmoid colitis. Likely 2/2 ischemic colitis as per GI recs. Follow up GI outpatient - s/p 1 unit pRBCs Hgb 6.6, goal >8 given cardiac history - am CBC to monitor hgb Colitis - CT abd/pelvis findings c/w colitis. - WBC 37 wth 35% bands, improving - LA 3.2, repeat WNL - Procal elevated but improved from yesterday - s/p Cefepime and Flagyl in ED. Continued but d/c on 09/14. Patient has no abdominal pain. GI agrees with no Abx at this time - am CBC to monitor WBC, bands ROLANDO, resolved - BUN 48 with baseline of 20 on chart review - Cr 1.54 with baseline of 1.00 on chart review - No known renal dz hx - Dehydration likely contributing factor. s/p 2.5L NS bolus - am BMP to monitor Fe deficiency anemia - Throughout her whole life. No clear cause - Hgb on admission lower than on previous admissions - Continue home Fe supplementation - Iron studies show mixed picture Syncopal episode - No fall or injury - Likely 2/2 hypovolemia and anemia - Fall precaution and ambulate with assist orders - PT/OT to eval/treat AFib - ASA only home anticoag. Resume ASA as per GI recs - SCDs for DVT ppx - NSR on admission. Continue diltiazem HTN - Hold home Losartan d/t ROLANDO - Monitor BP and consider prn meds Anxiety - Continue home meds - Atarax PRN Hypomagnesemia, hypokalemia, hypophosphatemia -aware, replace as indicated -follow up with repeat this PM Dispo: admit to inpt medical. Pending GI recs. eLOS >48hrs. Pending echo. Monitor respiratory and fluid status. Patient much improved after diuresis, continue to monitor and diurese as clinically indicated IVF: KVO Diet: HH DVT ppx: SCDs, home ASA GI ppx: protonix BID Code: Full. Palliative consult PCP: [place] Addendum - Attending - Attending Attestation Date/Time: 09/16/20 2044 I personally evaluated the patient and discussed the management with the team. I agree with the History, Examination, Assessment and Plan documented above with any addition or exceptions noted below. Denies cp/sob/n/v/f/c. Replete electrolytes, continue diuresis. Dc this PM or tomorrow.
[2020-09-16] MEDS: Levothyroxine Sodium 75 MCG TAB PO SCH (06:12)
[2020-09-16 06:19] VITALS: BMI 24.0
[2020-09-16 06:24] LABS: #Eosinphils 0.9 thou/uL (0.0-0.7); #Lymphocytes 1.6 thou/uL (1.20-3.40); #Monocytes 1.5 thou/uL (0.11-0.59); #Neutrophils 10.9 thou/uL (1.40-6.50); %Basophils 0.1 % (0.0-1.0); %Eosinophils 5.9 % (0.0-10.0); %Lymphocytes 10.7 % (21.0-51.0); %Monocytes 9.9 % (0.0-10.0); %Neutrophils 73.5 % (42.0-75.0); Hemoglobin 8.4 g/dL (12.0-16.0); Mean Corpuscular Hemoglobin 29.1 pg (27.0-31.0); Mean Corpuscular Volume 90.8 fL (78.0-98.0); Platelet Count 203 thou/uL (130-400); Red Blood Cell (RBC) Count 2.88 mill/uL (4.20-5.40); White Blood Cell (WBC) Count 14.9 thou/uL (4.8-10.8)
[2020-09-16 06:58] LABS: Anion Gap 13 mmol/L (10-20); BUN (Urea Nitrogen) 8 mg/dL (9.8-20.1); Calc. Creatinine Clearance 58 mL/min (70-130); Calcium 8.1 mg/dL (7.8-10.44); Carbon Dioxide 23 mmol/L (23-31); Chloride 105 mmol/L (98-107); Glucose 91 mg/dL (83-110); Magnesium 1.8 mg/dL (1.6-2.6); Sodium 138 mmol/L (136-145)
[2020-09-16 07:04] LABS: Phosphorus 1.9 mg/dL (2.3-4.7); Potassium 2.9 mmol/L (3.5-5.1)
[2020-09-16] MEDS ORDERED: Magnesium Sulfate 2 GM in Sodium Chloride 0.9% 100 ML IVPB SCH (07:15)
[2020-09-16] MEDS ORDERED: Potassium Phosphate 30 MMOL, Magnesium Sulfate 2 GM in Sodium Chloride 0.9% 250 ML 250 ML IVPB SCH (07:15)
[2020-09-16] MEDS ORDERED: Furosemide 40 MG/4 ML VIAL SLOW IVP SCH (07:15)
[2020-09-16] MEDS: Ferrous Sulfate 325 MG TAB PO SCH (08:28)
[2020-09-16] MEDS: Pantoprazole 40 MG VIAL IVP SCH (08:29)
[2020-09-16] MEDS: Fluticasone Propionate Nasal Spray 16 gm Bottle NASAL SCH (08:31)
[2020-09-16] MEDS: Potassium Chloride 20 MEQ TAB PO SCH (08:32)
[2020-09-16] MEDS ORDERED: Potassium Chloride 20 MEQ TAB PO SCH (09:30)
[2020-09-16 15:55] LABS: Anion Gap 17 mmol/L (10-20); BUN (Urea Nitrogen) 8 mg/dL (9.8-20.1); Calc. Creatinine Clearance 52 mL/min (70-130); Calcium 8.2 mg/dL (7.8-10.44); Carbon Dioxide 23 mmol/L (23-31); Chloride 103 mmol/L (98-107); Glucose 102 mg/dL (83-110); Magnesium 2.3 mg/dL (1.6-2.6); Phosphorus 3.6 mg/dL (2.3-4.7); Potassium 4.1 mmol/L (3.5-5.1); Sodium 139 mmol/L (136-145)
--- NOTE | 2020-09-16 17:47 | PRG ---
DATE OF SERVICE: 09/16/2020 SUBJECTIVE: Ms. Hernandez has no abdominal pain. No diarrhea or blood in the stool. OBJECTIVE: VITAL SIGNS: Temperature 98.8, pulse 94, and blood pressure 153/56. GENERAL: She is in no acute distress. Alert and oriented x3. LUNGS: Clear to auscultation bilaterally. HEART: Regular rate and rhythm without murmur. ABDOMEN: Soft, nontender, nondistended. Bowel sounds are present. EXTREMITIES: No lower extremity edema. LABORATORY DATA: White blood cell count 14.9 and hemoglobin 8.4. IMPRESSION: Ischemic colitis. She has circumferential colitis of the rectum and sigmoid, which is more in the inferior mesenteric artery distribution. Biopsies show an acute colitis and are not really suggesting a chronic inflammatory bowel disease. 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 She has significant stenosis of the celiac and SMA. The inferior mesenteric artery actually looks better than the other 2 vessels based on this exam, however, given these findings, plus the endoscopic findings and her clinical course, this is all consistent with acute ischemic colitis, which is now rapidly improved with rehydration. This was likely triggered by low blood pressure and hypoperfusion, compounded by her usual diuretics and antihypertensive medications. She is encouraged to maintain good hydration, drink plenty of water. RECOMMENDATIONS: 1. Follow up in GI Clinic in 3 to 4 weeks. 2. I will sign off. Please call if GI can be of assistance. Job ID: [id number]
[2020-09-16 18:35] VITALS: BP 158/83; TEMP 98.5
[2020-09-17] MEDS ORDERED: Aspirin Chewable 81 MG TAB PO SCH (09:00)
--- NOTE | 2020-09-17 16:36 | DIS ---
DATE OF ADMISSION: 09/12/2020 DATE OF DISCHARGE: 09/16/2020 RESIDENT: Neli Palm MD, PGY-1 ADMITTING ATTENDING: Andrew Burroughs MD DISCHARGE ATTENDING: Shaheed Haynes MD CONSULTS: 1. Dr. Anderson, Gastroenterology. 2. PT and OT. 3. Palliative Care. PROCEDURES: 1. CT of the abdomen and pelvis on 09/12/2020, which showed fluid-filled distended right colon consistent with a history of diarrhea. The transverse, descending, and sigmoid colon were all decompressed. However, there was a wall thickening and suggestion of some edema changes in the colon wall. Even considering the degree of distention that is more prominent in the sigmoid colon region, but also involved in the descending and perhaps, to a lesser extent, in the transverse colon. Changes are consistent with colitis. No pneumatosis identified. Stable angiomyolipoma of the right kidney. Stable subdural hypodensity involving the left kidney post cholecystectomy change. 2. Chest x-ray on 09/12/2020, which showed cardiomegaly with no acute findings. 3. On 09/14/2020, the patient underwent EGD with biopsies and colonoscopy with biopsies with findings of erosive gastritis, mild, nonbleeding with gastric biopsies obtained. Severe rectosigmoid colitis, severe and confluent with shallow ulcerations from 0 to 20 cm, moderate and patchy from 20 to 40 cm. Normal colonic mucosa throughout the transverse and ascending colon and cecum as well as terminal ileum. Sigmoid diverticulosis. 4. Chest x-ray on 09/15/2020, which showed pulmonary vascular congestion and edema with other findings stable. 5. Echocardiogram on 09/16/2020, which showed moderate pulmonary hypertension, EF of 60% to 65%, restrictive filling pattern with diastolic dysfunction, and mild LVH. PRIMARY DIAGNOSIS: heart failure exacerbation. SECONDARY DIAGNOSES: 1. Melena secondary to ischemic colitis. 2. Acute kidney injury, resolved. 3. Iron deficiency anemia. 4. Syncopal episode secondary to hypovolemia and anemia. 5. History of atrial fibrillation. 6. History of hypertension. 7. History of anxiety. 8. Hypomagnesemia, hypokalemia, and hypophosphatemia. DISCHARGE MEDICATIONS: 1. Atarax 25 mg p.o. q.6 hours p.r.n. 2. Potassium chloride 20 mEq p.o. b.i.d. 3. Lasix 40 mg p.o. daily. 4. Levothyroxine 75 mcg p.o. daily. 5. Losartan 50 mg p.o. daily. 6. Benadryl 25 mg p.o. q.6 hours as needed. 7. Diltiazem 120 mg p.o. daily. 8. Aspirin 81 mg p.o. daily. 9. Flonase 1 spray nasally daily. 10. Ferrous sulfate one tab p.o. daily. 11. Amitriptyline 25 mg p.o. at bedtime. 12. Sertraline 100 mg p.o. at bedtime. 13. Gabapentin 300 mg p.o. at bedtime. DISCONTINUED MEDICATIONS: 1. Lasix 20 mg p.o. daily. 2. Potassium chloride 20 mEq p.o. daily. HISTORY OF PRESENT ILLNESS AND HOSPITAL COURSE: The patient is an 84-year-old lady who was brought to the ED from EMS for persistent vomiting and diarrhea that started the day prior to admission. Two days ago, she had a general sense of malaise and upset stomach, but the vomiting and diarrhea did not start until that night. Prior to these symptoms, she ate barbecue, but no one else that ate that barbecue has been sick. She denies any sick contacts and otherwise has been able to tolerate p.o. She endorses dark diarrhea, but has noticed this since starting her iron supplementation. She states she has been borderline anemic all her life. She had a colonoscopy [address] Alvarez, which was reportedly negative. She has never had an EGD. She denies any history of bleeding disorders. On the day of admission, she states she was weak and collapsed and also had episodes of vomiting that was dark and questionably coffee-ground in appearance. The patient was given Zofran, Flagyl 500 mg, cefepime 2 g, and Protonix 40 IV along with a 2.5 L NS bolus in the ED. The patient's hemoglobin was found to be 6.6 and the patient was transfused a unit of blood. She received a total of 2 units. The patient states after the blood she felt much better. However, she started to feel more anxious. Her anxiety worsened and her respiratory status worsened. After her colonoscopy, it was thought that she had an increase in the amount of p.o. intake and this sent her into CHF exacerbation. The patient was diuresed and came back to her baseline. She denies any abdominal pain, nausea, vomiting, or diarrhea. No more dark stools. She was saturating well on room air and worked well with therapy, and GI signed off on the patient. DISPOSITION: Stable. DISCHARGE INSTRUCTIONS: 1. Location: Home. 2. Diet: Heart healthy diet. 3. Activity: As tolerated. 4. Followup: Follow up with PCP or Dr. Huber within the week for hospital followup and Dr. Anderson, Gastroenterology, in 3 to 4 weeks. Job ID: [id number] MTDD
--- NOTE | 2020-10-01 19:13 | EKG ---
Test Reason : Blood Pressure : / mmHG Vent. Rate : 080 BPM Atrial Rate : 080 BPM P-R Int : 156 ms QRS Dur : 104 ms QT Int : 432 ms P-R-T Axes : 099 052 085 degrees QTc Int : 498 ms Normal sinus rhythm Normal ECG Confirmed by LEANNA MERAZ DO ([id number]), loan expeditor KALYN CRESPO ([id number]) on 10/01/2020 7:12:42 PM Referred By: Confirmed By:LEANNA MERAZ DO
== END 2020-09-16 17:44 | disposition home or self-care (01) | DRG 393 ==
LOC: ERS 16:49 → ERHOLD 20:27 → T4-B 23:14
PROVIDERS: ADMIT Family Medicine; ATTEND Family Medicine
PROC: 30233N1 Transfusion of Nonautologous Red Blood Cells into Peripheral Vein, Percutaneous Approach (ICD-10-PCS; 2020-09-13)
PROC: 0DB68ZX Excision of Stomach, Via Natural or Artificial Opening Endoscopic, Diagnostic (ICD-10-PCS; principal; 2020-09-14)
PROC: 0DBG8ZX Excision of Left Large Intestine, Via Natural or Artificial Opening Endoscopic, Diagnostic (ICD-10-PCS; 2020-09-14)
PROC: 8E0ZXY6 Isolation (ICD-10-PCS; 2020-09-14)
DX: K55.039 Acute (reversible) ischemia of large intestine, extent unspecified (principal); I50.33 Acute on chronic diastolic (congestive) heart failure; N17.9 Acute kidney failure, unspecified; Z20.822 Contact with and (suspected) exposure to COVID-19; D50.9 Iron deficiency anemia, unspecified; E86.1 Hypovolemia; F41.9 Anxiety disorder, unspecified; E83.42 Hypomagnesemia; E87.6 Hypokalemia; E83.39 Other disorders of phosphorus metabolism; F41.0 Panic disorder [episodic paroxysmal anxiety]; I48.91 Unspecified atrial fibrillation; I11.0 Hypertensive heart disease with heart failure; E86.0 Dehydration; D63.8 Anemia in other chronic diseases classified elsewhere; K29.70 Gastritis, unspecified, without bleeding; K57.30 Diverticulosis of large intestine without perforation or abscess without bleeding; Z79.899 Other long term (current) drug therapy; Z88.1 Allergy status to other antibiotic agents; Z88.0 Allergy status to penicillin; Z88.8 Allergy status to other drugs, medicaments and biological substances; Z79.890 Hormone replacement therapy; Z79.82 Long term (current) use of aspirin; Z90.49 Acquired absence of other specified parts of digestive tract; Z95.1 Presence of aortocoronary bypass graft
CPT/HCPCS: 0240U; 36415; 36416; 36430; 71045; 74177; 80048; 80053; 82270; 82728; 83540; 83550; 83605; 83690; 83735; 83880; 84100; 84145; 84439; 84443; 84484; 85025; 85046; 85060; 85379; 85610; 85652; 85730; 86140; 86850; 86900; 86901; 87040; 88305; 88312; 93005; 93306; 94640; 94760; 96365; 96366; 96367; 96375; C9113; J0692; J1940; J2405; J2704; J3475; J3490; J7050; J7620; P9016; Q9967

== ENCOUNTER 2022-06-21 17:21 | Outpatient (CLI) | payer MEDICARE | END 2022-06-21 17:22 | disposition home or self-care (01) | LOC: SCSRAD 17:21 | PROVIDERS: ATTEND Nurse Practitioner Family | DX: R06.02 Shortness of breath (principal); I51.7 Cardiomegaly | CPT/HCPCS: 71046 ==

== ENCOUNTER 2022-08-13 06:54 | Day surgery (SDC) | payer MEDICARE ==
[2022-08-10 12:06] VITALS: BMI 23.8
[2022-08-13] MEDS ORDERED: PROPOFOL 200 MG/20 ML VIAL ONE (08:27)
[2022-08-13 10:24] LABS: Hemoglobin 10.8 g/dL (12.0-16.0)
== END 2022-08-13 10:17 | disposition home or self-care (01) ==
LOC: SDC 06:54
PROVIDERS: ATTEND Internal Medicine Gastroenterology
PROC: 0W3P8ZZ Control Bleeding in Gastrointestinal Tract, Via Natural or Artificial Opening Endoscopic (ICD-10-PCS; principal; 2022-08-13)
DX: K31.811 Angiodysplasia of stomach and duodenum with bleeding (principal); K57.10 Diverticulosis of small intestine without perforation or abscess without bleeding; K44.9 Diaphragmatic hernia without obstruction or gangrene; D50.9 Iron deficiency anemia, unspecified; E78.5 Hyperlipidemia, unspecified; I11.0 Hypertensive heart disease with heart failure; I50.9 Heart failure, unspecified; I25.10 Atherosclerotic heart disease of native coronary artery without angina pectoris; E03.9 Hypothyroidism, unspecified; I48.91 Unspecified atrial fibrillation; Z79.82 Long term (current) use of aspirin; Z79.890 Hormone replacement therapy; Z79.899 Other long term (current) drug therapy; Z88.0 Allergy status to penicillin; Z88.1 Allergy status to other antibiotic agents; Z88.2 Allergy status to sulfonamides; Z91.013 Allergy to seafood
CPT/HCPCS: 85018; J2704

== ENCOUNTER 2022-08-25 17:15 | Inpatient (IN) | payer MEDICARE, OTHER ==
[2022-08-25 18:21] LABS: Hemoglobin 9.4 g/dL (12.0-16.0); Mean Corpuscular HGB CONC 33.7 g/dL (32.0-36.0); Mean Corpuscular Hemoglobin 30.2 pg (27.0-31.0); Mean Corpuscular Volume 89.7 fl (78.0-98.0); Mean Platelet Volume 7.8 fL (7.4-10.4); Platelet Count 257 10x3/uL (130-400); RBC Distribution Width 13.6 % (11.5-14.5); Red Blood Cell (RBC) Count 3.11 mill/uL (4.20-5.40); White Blood Cell (WBC) Count 18.3 10x3/uL (4.8-10.8)
[2022-08-25] MEDS ORDERED: Azithromycin 500 MG VIAL ONE (18:32)
[2022-08-25] MEDS ORDERED: Acetaminophen 500 MG TAB ONE (18:32)
[2022-08-25 18:40] LABS: ALT (SGPT) Less than 7 U/L (8-55); AST (SGOT) 17 U/L (5-34); Albumin 3.8 g/dL (3.4-4.8); Alkaline Phosphatase 92 U/L (40-110); Anion Gap 15 mmol/L (10-20); BUN (Urea Nitrogen) 17 mg/dL (9.8-20.1); Bilirubin, Total 0.7 mg/dL (0.2-1.2); Calc. Creatinine Clearance 0 mL/min (70-130); Calcium 9.1 mg/dL (7.8-10.44); Carbon Dioxide 21 mmol/L (23-31); Chloride 104 mmol/L (98-107); Estimated GFR 46; Globulin 3.5 g/dL (2.4-3.5); Glucose 112 mg/dL (83-110); Potassium 4.1 mmol/L (3.5-5.1); Protein, Total 7.3 g/dL (5.8-8.1); Sodium 136 mmol/L (136-145)
[2022-08-25 18:41] LABS: Band 4 % (5-11); Lymphocytes 7 % (21-51); MDiff Complete? YES; Monocytes 12 % (0-10); Neutrophil 74 % (42-75); Platelet Morphology Comment Appears Adequate; RBC Morphology Normal; Reactive Lymphocytes 3 % (0-10)
[2022-08-25 19:56] LABS: CKMB 1.1 ng/mL (0-6.6)
[2022-08-25] MEDS ORDERED: Levofloxacin 750 mg/D5W 500 MG in Premix Bag 1 BAG IVPB SCH (20:45)
[2022-08-25] MEDS ORDERED: Dronedarone HCl 400 MG TAB PO SCH (21:30)
[2022-08-25 22:27] LABS: Troponin I 0.026 ng/mL (< 0.028)
[2022-08-26 04:40] VITALS: BMI 25.0
[2022-08-26] MEDS ORDERED: Dronedarone HCl 400 MG TAB PO SCH ×2 (05:00→08:00)
[2022-08-26] MEDS: Gabapentin 300 MG CAP PO SCH ×2 (05:02→20:41)
[2022-08-26] MEDS: busPIRone HCl 5 MG TAB PO SCH ×3 (05:02→20:41)
[2022-08-26] MEDS: guaiFENesin/DM ER PO SCH ×3 (05:02→20:42)
[2022-08-26] MEDS: Atorvastatin Calcium 20 MG TAB PO SCH ×2 (05:02→20:41)
[2022-08-26] MEDS: Levothyroxine Sodium 75 MCG TAB PO SCH (05:38)
[2022-08-26] MEDS: hydrOXYzine 25 MG TAB PO PRN (05:54)
[2022-08-26 06:04] LABS: Hemoglobin 8.4 g/dL (12.0-16.0); Mean Corpuscular HGB CONC 32.7 g/dL (32.0-36.0); Mean Corpuscular Hemoglobin 29.8 pg (27.0-31.0); Mean Corpuscular Volume 91.1 fl (78.0-98.0); Mean Platelet Volume 7.8 fL (7.4-10.4); Platelet Count 233 10x3/uL (130-400); RBC Distribution Width 13.9 % (11.5-14.5); Red Blood Cell (RBC) Count 2.83 mill/uL (4.20-5.40); White Blood Cell (WBC) Count 18.5 10x3/uL (4.8-10.8)
[2022-08-26 06:17] LABS: ALT (SGPT) 11 U/L (8-55); AST (SGOT) 15 U/L (5-34); Albumin 3.3 g/dL (3.4-4.8); Alkaline Phosphatase 98 U/L (40-110); Anion Gap 13 mmol/L (10-20); BUN (Urea Nitrogen) 16 mg/dL (9.8-20.1); Bilirubin, Total 0.7 mg/dL (0.2-1.2); Calc. Creatinine Clearance 47 mL/min (70-130); Calcium 8.6 mg/dL (7.8-10.44); Carbon Dioxide 21 mmol/L (23-31); Chloride 109 mmol/L (98-107); Estimated GFR 66; Globulin 3.2 g/dL (2.4-3.5); Glucose 102 mg/dL (83-110); Potassium 3.9 mmol/L (3.5-5.1); Protein, Total 6.5 g/dL (5.8-8.1); Sodium 139 mmol/L (136-145)
[2022-08-26 06:21] LABS: Band 1 % (5-11); Lymphocytes 3 % (21-51); MDiff Complete? YES; Monocytes 8 % (0-10); Neutrophil 88 % (42-75)
[2022-08-26 07:18] LABS: Legionella Urinary Ag Negative (Negative); Strep pneumo Urine Ag NEGATIVE (NEGATIVE)
[2022-08-26] MEDS ORDERED: Enoxaparin Sodium 30 MG/0.3 ML SYRINGE SC SCH (09:00)
[2022-08-26] MEDS: Losartan 25 MG TAB PO SCH (10:09)
[2022-08-26] MEDS: Aspirin 81 mg Enteric Coated Tablet PO SCH (10:09)
[2022-08-26] MEDS: Citalopram 10 MG TAB PO SCH (10:09)
[2022-08-26] MEDS: Dronedarone HCl 400 MG TAB PO SCH ×2 (10:10→18:28)
[2022-08-26] MEDS: Potassium Chloride 20 MEQ TAB PO SCH (10:10)
[2022-08-26] MEDS: Ferrous Sulfate 325 MG TAB PO SCH (10:10)
[2022-08-26] MEDS: Furosemide 40 MG TAB PO SCH (10:11)
[2022-08-26] MEDS: Cefepime 1 GM in Sodium Chloride 0.9% 100 ML IVPB SCH ×2 (12:18→20:45)
[2022-08-26] MEDS: Acetaminophen 325 MG TAB PO PRN (15:48)
[2022-08-26] MEDS: Fluticasone Propionate Nasal Spray 16 gm Bottle NASAL SCH (18:11)
[2022-08-26] MEDS: Azithromycin 500 MG in Sodium Chloride 0.9% 250 ML 250 ML IVPB SCH (18:18)
[2022-08-26] MEDS: Melatonin 3 MG TAB PO SCH (20:41)
[2022-08-26] MEDS: Doxepin HCl 10 MG CAP PO SCH (20:42)
[2022-08-26] MEDS: Transdermal Patch Removal TOP SCH (21:54)
[2022-08-27] MEDS: Levothyroxine Sodium 75 MCG TAB PO SCH (05:08)
[2022-08-27] MEDS: Acetaminophen 325 MG TAB PO PRN ×3 (05:09→22:51)
[2022-08-27 05:23] LABS: ALT (SGPT) 12 U/L (8-55); AST (SGOT) 15 U/L (5-34); Albumin 3.2 g/dL (3.4-4.8); Alkaline Phosphatase 94 U/L (40-110); Anion Gap 12 mmol/L (10-20); BUN (Urea Nitrogen) 14 mg/dL (9.8-20.1); Bilirubin, Total 0.6 mg/dL (0.2-1.2); Calc. Creatinine Clearance 47 mL/min (70-130); Calcium 8.9 mg/dL (7.8-10.44); Carbon Dioxide 19 mmol/L (23-31); Chloride 111 mmol/L (98-107); Estimated GFR 66; Globulin 3.1 g/dL (2.4-3.5); Glucose 112 mg/dL (83-110); Potassium 3.9 mmol/L (3.5-5.1); Protein, Total 6.3 g/dL (5.8-8.1); Sodium 138 mmol/L (136-145)
[2022-08-27 05:39] LABS: #Basophils 0.1 thou/uL (0.0-0.2); #Eosinphils 0.1 thou/uL (0.0-0.7); #Lymphocytes 0.9 thou/uL (1.20-3.40); #Monocytes 2.3 thou/uL (0.11-0.59); #Neutrophils 14.7 thou/uL (1.40-6.50); %Basophils 0.3 % (0.0-1.0); %Eosinophils 0.4 % (0.0-10.0); %Monocytes 12.8 % (0.0-10.0); %Neutrophils 81.5 % (42.0-75.0); Hemoglobin 7.5 g/dL (12.0-16.0); Mean Corpuscular HGB CONC 32.2 g/dL (32.0-36.0); Mean Corpuscular Hemoglobin 29.2 pg (27.0-31.0); Mean Corpuscular Volume 90.8 fl (78.0-98.0); Mean Platelet Volume 7.9 fL (7.4-10.4); Platelet Count 223 10x3/uL (130-400); RBC Distribution Width 13.9 % (11.5-14.5); Red Blood Cell (RBC) Count 2.58 mill/uL (4.20-5.40); White Blood Cell (WBC) Count 18.1 10x3/uL (4.8-10.8)
[2022-08-27] MEDS: Cefepime 1 GM in Sodium Chloride 0.9% 100 ML IVPB SCH ×2 (08:19→22:55)
[2022-08-27] MEDS: Lidocaine 5% Patch TD SCH (08:19)
[2022-08-27] MEDS: Ferrous Sulfate 325 MG TAB PO SCH (08:20)
[2022-08-27] MEDS: Losartan 25 MG TAB PO SCH (08:20)
[2022-08-27] MEDS: Dronedarone HCl 400 MG TAB PO SCH ×2 (08:20→15:37)
[2022-08-27] MEDS: Aspirin 81 mg Enteric Coated Tablet PO SCH (08:21)
[2022-08-27] MEDS: Potassium Chloride 20 MEQ TAB PO SCH (08:21)
[2022-08-27] MEDS: guaiFENesin/DM ER PO SCH ×2 (08:21→22:53)
[2022-08-27] MEDS: Furosemide 40 MG TAB PO SCH (08:21)
[2022-08-27] MEDS: busPIRone HCl 5 MG TAB PO SCH ×2 (08:22→22:52)
[2022-08-27] MEDS: Citalopram 10 MG TAB PO SCH (08:22)
[2022-08-27] MEDS: Fluticasone Propionate Nasal Spray 16 gm Bottle NASAL SCH ×2 (10:14→15:08)
[2022-08-27] MEDS ORDERED: Benzonatate 100 MG CAP PO PRN (11:04)
[2022-08-27] MEDS: hydrOXYzine 25 MG TAB PO PRN ×2 (14:20→22:51)
[2022-08-27] MEDS ORDERED: Ipratropium Bromide 2.5 ml Neb NEB PRN (16:02)
[2022-08-27] MEDS ORDERED: Albuterol Sulfate 2.5 mg/3 ml Neb NEB PRN (16:02)
[2022-08-27] MEDS ORDERED: Ipratropium Bromide 2.5 ml Neb NEB SCH (16:15)
[2022-08-27] MEDS ORDERED: Albuterol Sulfate 2.5 mg/3 ml Neb NEB SCH (16:15)
[2022-08-27] MEDS: Azithromycin 500 MG in Sodium Chloride 0.9% 250 ML 250 ML IVPB SCH (17:07)
[2022-08-27] MEDS ORDERED: Metoprolol Tartrate 5 MG/5 ML VIAL ONE (17:29)
[2022-08-27] MEDS ORDERED: Metoprolol Tartrate 5 MG/5 ML VIAL IVP SCH (17:30)
[2022-08-27 18:25] LABS: Hemoglobin 7.8 g/dL (12.0-16.0)
[2022-08-27 18:45] LABS: Anion Gap 12 mmol/L (10-20); BUN (Urea Nitrogen) 16 mg/dL (9.8-20.1); Calc. Creatinine Clearance 47 mL/min (70-130); Calcium 9.1 mg/dL (7.8-10.44); Carbon Dioxide 19 mmol/L (23-31); Chloride 112 mmol/L (98-107); Estimated GFR 66; Glucose 145 mg/dL (83-110); Magnesium 1.8 mg/dL (1.6-2.6); Potassium 4.1 mmol/L (3.5-5.1); Sodium 139 mmol/L (136-145)
[2022-08-27] MEDS: Atorvastatin Calcium 20 MG TAB PO SCH (22:52)
[2022-08-27] MEDS: Melatonin 3 MG TAB PO SCH (22:52)
[2022-08-27] MEDS: Gabapentin 300 MG CAP PO SCH (22:52)
[2022-08-27] MEDS: Doxepin HCl 10 MG CAP PO SCH (22:53)
[2022-08-27] MEDS: Transdermal Patch Removal TOP SCH (22:53)
[2022-08-27] MEDS ORDERED: Diltiazem HCl SR 60 mg Capsule PO SCH (23:00)
[2022-08-28] MEDS ORDERED: Magnesium 2 GM/50 ML(in water) 2 GM in Premix Bag 1 BAG IVPB SCH ×2 (03:00→09:15)
[2022-08-28 05:05] LABS: #Eosinphils 0.1 thou/uL (0.0-0.7); #Lymphocytes 1.8 thou/uL (1.20-3.40); #Monocytes 1.9 thou/uL (0.11-0.59); %Basophils 0.1 % (0.0-1.0); %Eosinophils 0.9 % (0.0-10.0); %Lymphocytes 10.9 % (21.0-51.0); %Neutrophils 77.2 % (42.0-75.0); Hemoglobin 7.6 g/dL (12.0-16.0); Mean Corpuscular Hemoglobin 29.3 pg (27.0-31.0); Mean Corpuscular Volume 91.6 fl (78.0-98.0); Mean Platelet Volume 7.6 fL (7.4-10.4); Platelet Count 262 10x3/uL (130-400); RBC Distribution Width 14.2 % (11.5-14.5); Red Blood Cell (RBC) Count 2.57 mill/uL (4.20-5.40); White Blood Cell (WBC) Count 16.9 10x3/uL (4.8-10.8)
[2022-08-28 05:24] LABS: Phosphorus 3.3 mg/dL (2.3-4.7)
[2022-08-28 05:32] LABS: Anion Gap 14 mmol/L (10-20); BUN (Urea Nitrogen) 15 mg/dL (9.8-20.1); Calc. Creatinine Clearance 45 mL/min (70-130); Calcium 9.2 mg/dL (7.8-10.44); Carbon Dioxide 18 mmol/L (23-31); Chloride 114 mmol/L (98-107); Estimated GFR 63; Glucose 109 mg/dL (83-110); Potassium 3.8 mmol/L (3.5-5.1); Sodium 142 mmol/L (136-145)
[2022-08-28] MEDS: Levothyroxine Sodium 75 MCG TAB PO SCH (05:45)
[2022-08-28] MEDS ORDERED: Potassium Chloride 20 MEQ TAB PO SCH ×2 (08:45→09:15)
[2022-08-28] MEDS: guaiFENesin/DM ER PO SCH ×2 (08:50→21:14)
[2022-08-28] MEDS: Potassium Chloride 20 MEQ TAB PO SCH (08:50)
[2022-08-28] MEDS: Citalopram 10 MG TAB PO SCH (08:50)
[2022-08-28] MEDS: Furosemide 40 MG TAB PO SCH (08:50)
[2022-08-28] MEDS: Lidocaine 5% Patch TD SCH (08:50)
[2022-08-28] MEDS: Aspirin 81 mg Enteric Coated Tablet PO SCH (08:50)
[2022-08-28 08:51] LABS: Magnesium 1.9 mg/dL (1.6-2.6)
[2022-08-28] MEDS: busPIRone HCl 5 MG TAB PO SCH ×2 (08:51→21:14)
[2022-08-28] MEDS: Losartan 25 MG TAB PO SCH (08:51)
[2022-08-28] MEDS: Dronedarone HCl 400 MG TAB PO SCH ×2 (08:51→16:08)
[2022-08-28] MEDS: Cefepime 1 GM in Sodium Chloride 0.9% 100 ML IVPB SCH ×2 (08:51→21:14)
[2022-08-28] MEDS: Acetaminophen 325 MG TAB PO PRN ×3 (09:00→21:12)
[2022-08-28] MEDS: Fluticasone Propionate Nasal Spray 16 gm Bottle NASAL SCH (11:08)
[2022-08-28] MEDS: hydrOXYzine 25 MG TAB PO PRN ×2 (11:08→17:33)
[2022-08-28] MEDS: Azithromycin 500 MG in Sodium Chloride 0.9% 250 ML 250 ML IVPB SCH (17:16)
[2022-08-28 21:11] LABS: Hemoglobin 9.8 g/dL (12.0-16.0)
[2022-08-28] MEDS: Gabapentin 300 MG CAP PO SCH (21:12)
[2022-08-28] MEDS: Melatonin 3 MG TAB PO SCH (21:13)
[2022-08-28] MEDS: Doxepin HCl 10 MG CAP PO SCH (21:13)
[2022-08-28] MEDS: Atorvastatin Calcium 20 MG TAB PO SCH (21:14)
[2022-08-28] MEDS: Transdermal Patch Removal TOP SCH (21:14)
[2022-08-29 05:19] LABS: Anion Gap 12 mmol/L (10-20); BUN (Urea Nitrogen) 19 mg/dL (9.8-20.1); Calc. Creatinine Clearance 38 mL/min (70-130); Calcium 9.4 mg/dL (7.8-10.44); Carbon Dioxide 21 mmol/L (23-31); Chloride 115 mmol/L (98-107); Estimated GFR 51; Glucose 101 mg/dL (83-110); Magnesium 2.8 mg/dL (1.6-2.6); Potassium 4.5 mmol/L (3.5-5.1); Sodium 143 mmol/L (136-145)
[2022-08-29] MEDS: Levothyroxine Sodium 75 MCG TAB PO SCH (05:28)
[2022-08-29] MEDS ORDERED: Ferrous Sulfate 325 MG TAB PO SCH (08:00)
[2022-08-29] MEDS ORDERED: Albuterol 200 PUFF (6.7GM INHALER) INH PRN (08:25)
[2022-08-29] MEDS ORDERED: Albuterol 200 PUFF (6.7GM INHALER) INH SCH (08:30)
[2022-08-29] MEDS ORDERED: hydrOXYzine 25 MG TAB PO SCH (08:45)
[2022-08-29] MEDS: Dronedarone HCl 400 MG TAB PO SCH ×2 (10:24→16:36)
[2022-08-29] MEDS: Aspirin 81 mg Enteric Coated Tablet PO SCH (10:24)
[2022-08-29] MEDS: Citalopram 10 MG TAB PO SCH (10:25)
[2022-08-29] MEDS: Potassium Chloride 20 MEQ TAB PO SCH (10:25)
[2022-08-29] MEDS: busPIRone HCl 5 MG TAB PO SCH ×2 (10:25→21:08)
[2022-08-29] MEDS: Furosemide 40 MG TAB PO SCH (10:25)
[2022-08-29] MEDS: Lidocaine 5% Patch TD SCH (10:26)
[2022-08-29] MEDS: guaiFENesin/DM ER PO SCH ×2 (10:26→21:10)
[2022-08-29] MEDS: Cefepime 1 GM in Sodium Chloride 0.9% 100 ML IVPB SCH ×2 (10:26→21:10)
[2022-08-29] MEDS: Fluticasone Propionate Nasal Spray 16 gm Bottle NASAL SCH (10:27)
[2022-08-29] MEDS: Losartan 25 MG TAB PO SCH (10:32)
[2022-08-29] MEDS ORDERED: hydrALAZINE 20 MG/ML VIAL SLOW IVP PRN (15:41)
[2022-08-29] MEDS: Acetaminophen 325 MG TAB PO PRN (18:37)
[2022-08-29] MEDS: hydrOXYzine 25 MG TAB PO PRN (18:38)
[2022-08-29] MEDS: Azithromycin 500 MG in Sodium Chloride 0.9% 250 ML 250 ML IVPB SCH (18:38)
[2022-08-29] MEDS: Atorvastatin Calcium 20 MG TAB PO SCH (21:08)
[2022-08-29] MEDS: Doxepin HCl 10 MG CAP PO SCH (21:08)
[2022-08-29] MEDS: Gabapentin 300 MG CAP PO SCH (21:09)
[2022-08-29] MEDS: Melatonin 3 MG TAB PO SCH (21:09)
[2022-08-29] MEDS: Transdermal Patch Removal TOP SCH (21:49)
[2022-08-30 04:43] LABS: Anion Gap 13 mmol/L (10-20); BUN (Urea Nitrogen) 18 mg/dL (9.8-20.1); Calc. Creatinine Clearance 44 mL/min (70-130); Calcium 9.4 mg/dL (7.8-10.44); Carbon Dioxide 20 mmol/L (23-31); Chloride 113 mmol/L (98-107); Estimated GFR 61; Glucose 88 mg/dL (83-110); Sodium 142 mmol/L (136-145)
[2022-08-30] MEDS: Levothyroxine Sodium 75 MCG TAB PO SCH (06:18)
[2022-08-30] MEDS: guaiFENesin/DM ER PO SCH (10:07)
[2022-08-30] MEDS: Potassium Chloride 20 MEQ TAB PO SCH (10:07)
[2022-08-30] MEDS: Citalopram 10 MG TAB PO SCH (10:07)
[2022-08-30] MEDS: busPIRone HCl 5 MG TAB PO SCH (10:07)
[2022-08-30] MEDS: Dronedarone HCl 400 MG TAB PO SCH (10:07)
[2022-08-30] MEDS: Aspirin 81 mg Enteric Coated Tablet PO SCH (10:07)
[2022-08-30] MEDS: Losartan 25 MG TAB PO SCH (10:08)
[2022-08-30] MEDS: Cefepime 1 GM in Sodium Chloride 0.9% 100 ML IVPB SCH (10:08)
[2022-08-30] MEDS: Furosemide 40 MG TAB PO SCH (10:08)
[2022-08-30] MEDS: Lidocaine 5% Patch TD SCH (10:09)
[2022-08-30] MEDS: Fluticasone Propionate Nasal Spray 16 gm Bottle NASAL SCH (10:09)
[2022-08-30] MEDS: hydrOXYzine 25 MG TAB PO PRN (10:11)
[2022-08-30] MEDS ORDERED: Azithromycin 500 MG in Sodium Chloride 0.9% 250 ML 250 ML IVPB SCH (11:00)
[2022-08-30 11:41] VITALS: BP 160/70; TEMP 98.1
== END 2022-08-30 13:45 | disposition home health service (06) | DRG 193 ==
LOC: ERS 17:15 → 2NO 20:14 → OBSVTOIN 08-27 08:23
PROVIDERS: ADMIT Student in an Organized Health Care Education/Training Program; ATTEND Student in an Organized Health Care Education/Training Program
PROC: 30233N1 Transfusion of Nonautologous Red Blood Cells into Peripheral Vein, Percutaneous Approach (ICD-10-PCS; principal; 2022-08-28)
DX: J15.9 Unspecified bacterial pneumonia (principal); J96.01 Acute respiratory failure with hypoxia; N17.9 Acute kidney failure, unspecified; I50.32 Chronic diastolic (congestive) heart failure; Z66 Do not resuscitate; I25.10 Atherosclerotic heart disease of native coronary artery without angina pectoris; F41.9 Anxiety disorder, unspecified; D50.9 Iron deficiency anemia, unspecified; I11.0 Hypertensive heart disease with heart failure; I48.0 Paroxysmal atrial fibrillation; E03.9 Hypothyroidism, unspecified; Z88.0 Allergy status to penicillin; Z88.1 Allergy status to other antibiotic agents; Z88.2 Allergy status to sulfonamides; Z91.013 Allergy to seafood; Z90.49 Acquired absence of other specified parts of digestive tract
CPT/HCPCS: 36415; 36430; 71045; 80048; 80053; 82553; 83605; 83735; 83880; 84100; 84145; 84484; 85025; 86850; 86900; 86901; 87040; 87324; 87449; 87899; 93005; 93010; 96374; 96375; 96376; G0378; J0360; J0456; J0692; J1956; J3475; J3490; J7050; P9016

== ENCOUNTER 2022-10-03 13:42 | Outpatient (CLI) | payer MEDICARE | END 2022-10-03 13:43 | disposition home or self-care (01) | LOC: BICRAD 13:42 | PROVIDERS: ATTEND Family Medicine | DX: J20.9 Acute bronchitis, unspecified (principal) | CPT/HCPCS: 71046 ==

== ENCOUNTER 2022-10-07 13:56 | Emergency (ER) | payer MEDICARE ==
[2022-10-07] MEDS ORDERED: Magnesium 2 GM/50 ML BAG (IN WATER) ONE (14:13)
[2022-10-07 14:29] LABS: #Eosinphils 0.5 thou/uL (0.0-0.7); #Lymphocytes 1.7 thou/uL (1.20-3.40); #Monocytes 0.9 thou/uL (0.11-0.59); #Neutrophils 5.5 thou/uL (1.40-6.50); %Basophils 0.6 % (0.0-1.0); %Eosinophils 5.3 % (0.0-10.0); %Lymphocytes 19.3 % (21.0-51.0); %Monocytes 10.2 % (0.0-10.0); %Neutrophils 64.7 % (42.0-75.0); Hemoglobin 10.8 g/dL (12.0-16.0); Mean Corpuscular HGB CONC 33.8 g/dL (32.0-36.0); Mean Corpuscular Hemoglobin 30.7 pg (27.0-31.0); Mean Corpuscular Volume 90.7 fl (78.0-98.0); Mean Platelet Volume 7.5 fL (7.4-10.4); Platelet Count 214 10x3/uL (130-400); RBC Distribution Width 14.2 % (11.5-14.5); Red Blood Cell (RBC) Count 3.53 mill/uL (4.20-5.40); White Blood Cell (WBC) Count 8.6 10x3/uL (4.8-10.8)
[2022-10-07 14:47] LABS: ALT (SGPT) 12 U/L (8-55); AST (SGOT) 16 U/L (5-34); Albumin 3.8 g/dL (3.4-4.8); Alkaline Phosphatase 72 U/L (40-110); Anion Gap 13 mmol/L (10-20); BUN (Urea Nitrogen) 30 mg/dL (9.8-20.1); Bilirubin, Total 0.4 mg/dL (0.2-1.2); Calc. Creatinine Clearance 0 mL/min (70-130); Carbon Dioxide 20 mmol/L (23-31); Chloride 110 mmol/L (98-107); Estimated GFR 38; Globulin 3.1 g/dL (2.4-3.5); Glucose 131 mg/dL (83-110); Lipase 42 U/L (8-78); Potassium 4.9 mmol/L (3.5-5.1); Protein, Total 6.9 g/dL (5.8-8.1); Sodium 138 mmol/L (136-145)
[2022-10-07 16:44] LABS: Bilirubin Negative (Negative); Blood, Urine Negative (Negative); Clarity Clear (Clear); Glucose, Urine (Dipstick) Normal (Negative); Ketone, Urine Negative (Negative); Leukocyte 75 Leu/uL (Negative); Nitrite Negative (Negative); Protein, Urine (Dipstick) Negative (Neg-Trace); RBC/HPF 0-3 HPF (0-3); Specific Gravity, Urine 1.011 (1.002-1.036); Squamous Epithelial 0-3 HPF (0-3); Urobilinogen Normal mg/dL (Less than 2); WBC/HPF 0-3 HPF (0-3)
[2022-10-07 16:45] LABS: Bacteria/HPF 1+ HPF (None Seen)
[2022-10-07] MEDS ORDERED: Sodium Chloride 0.9% 100 ML ONE (17:11)
[2022-10-07] MEDS ORDERED: cefTRIAXone\\ROCEPHIN 1 GM VIAL ONE (17:11)
== END 2022-10-07 19:05 | disposition home or self-care (01) ==
LOC: ERS 13:56
DX: J18.9 Pneumonia, unspecified organism (principal); R82.71 Bacteriuria; E86.0 Dehydration; I11.0 Hypertensive heart disease with heart failure; I50.9 Heart failure, unspecified; Z79.82 Long term (current) use of aspirin; Z79.899 Other long term (current) drug therapy
CPT/HCPCS: 36415; 71045; 71275; 80053; 81003; 81015; 83690; 83880; 84443; 84484; 85025; 85379; 86850; 86900; 86901; 93005; 96374; 96375; J0696; J3475; J3490; Q9967

== ENCOUNTER 2022-10-24 11:04 | Inpatient (IN) | payer MEDICARE ==
[2022-10-24 11:44] LABS: #Eosinphils 0.4 thou/uL (0.0-0.7); #Lymphocytes 1.3 thou/uL (1.20-3.40); #Monocytes 1.1 thou/uL (0.11-0.59); #Neutrophils 6.4 thou/uL (1.40-6.50); %Basophils 0.2 % (0.0-1.0); %Eosinophils 4.5 % (0.0-10.0); %Lymphocytes 13.7 % (21.0-51.0); %Monocytes 12.2 % (0.0-10.0); %Neutrophils 69.3 % (42.0-75.0); Hemoglobin 10.1 g/dL (12.0-16.0); Mean Corpuscular HGB CONC 32.5 g/dL (32.0-36.0); Mean Corpuscular Hemoglobin 30.4 pg (27.0-31.0); Mean Corpuscular Volume 93.5 fl (78.0-98.0); Mean Platelet Volume 7.5 fL (7.4-10.4); Platelet Count 227 10x3/uL (130-400); RBC Distribution Width 14.9 % (11.5-14.5); Red Blood Cell (RBC) Count 3.33 mill/uL (4.20-5.40); White Blood Cell (WBC) Count 9.2 10x3/uL (4.8-10.8)
[2022-10-24 11:58] LABS: ALT (SGPT) 75 U/L (8-55); AST (SGOT) 40 U/L (5-34); Albumin 3.8 g/dL (3.4-4.8); Alkaline Phosphatase 107 U/L (40-110); Anion Gap 13 mmol/L (10-20); BUN (Urea Nitrogen) 27 mg/dL (9.8-20.1); Bilirubin, Total 0.4 mg/dL (0.2-1.2); Calc. Creatinine Clearance 0 mL/min (70-130); Calcium 9.2 mg/dL (7.8-10.44); Carbon Dioxide 23 mmol/L (23-31); Chloride 112 mmol/L (98-107); Estimated GFR 46; Globulin 2.9 g/dL (2.4-3.5); Glucose 102 mg/dL (83-110); Potassium 4.9 mmol/L (3.5-5.1); Protein, Total 6.7 g/dL (5.8-8.1); Sodium 143 mmol/L (136-145)
[2022-10-24] MEDS ORDERED: cefTRIAXone\\ROCEPHIN 500 MG VIAL ONE (13:52)
[2022-10-24] MEDS ORDERED: Furosemide 40 MG/4 ML VIAL ONE (14:30)
[2022-10-24 15:47] LABS: Bilirubin Negative (Negative); Blood, Urine Negative (Negative); Clarity Clear (Clear); Glucose, Urine (Dipstick) Normal (Negative); Ketone, Urine Negative (Negative); Leukocyte 250 Leu/uL (Negative); Nitrite Negative (Negative); Protein, Urine (Dipstick) Negative (Neg-Trace); RBC/HPF 0-3 HPF (0-3); Specific Gravity, Urine 1.009 (1.002-1.036); Squamous Epithelial 0-3 HPF (0-3); Urobilinogen Normal mg/dL (Less than 2)
[2022-10-24 15:48] LABS: Bacteria/HPF Rare-Few HPF (None Seen)
[2022-10-24] MEDS ORDERED: Ondansetron PF 4 MG/2 ML Vial IVP PRN (16:17)
[2022-10-24] MEDS ORDERED: hydrOXYzine 25 MG TAB PO PRN (16:34)
[2022-10-24 16:52] VITALS: BMI 24.2
[2022-10-24 17:56] LABS: SARS-CoV-2 NAA Rapid Test Not Detected (NotDetected)
[2022-10-24] MEDS ORDERED: Non-Formulary Item 1 EACH (Magnesium [Magnesium] 200 MG Tablet) PO SCH (21:00)
[2022-10-24] MEDS: Gabapentin 300 MG CAP PO SCH (21:23)
[2022-10-24] MEDS: busPIRone HCl 5 MG TAB PO SCH (21:23)
[2022-10-24] MEDS: Atorvastatin Calcium 20 MG TAB PO SCH (21:23)
[2022-10-24] MEDS: Doxepin HCl 10 MG CAP PO SCH (21:23)
[2022-10-24] MEDS: Melatonin 3 MG TAB PO SCH (21:23)
[2022-10-24] MEDS: Acetaminophen 325 MG TAB PO PRN (21:25)
[2022-10-25] MEDS: Levothyroxine Sodium 75 MCG TAB PO SCH (04:17)
[2022-10-25 05:29] LABS: ALT (SGPT) 55 U/L (8-55); AST (SGOT) 25 U/L (5-34); Albumin 3.5 g/dL (3.4-4.8); Alkaline Phosphatase 97 U/L (40-110); Anion Gap 13 mmol/L (10-20); BUN (Urea Nitrogen) 23 mg/dL (9.8-20.1); Bilirubin, Total 0.4 mg/dL (0.2-1.2); Calc. Creatinine Clearance 37 mL/min (70-130); Calcium 8.6 mg/dL (7.8-10.44); Carbon Dioxide 22 mmol/L (23-31); Chloride 109 mmol/L (98-107); Estimated GFR 51; Globulin 2.4 g/dL (2.4-3.5); Glucose 82 mg/dL (83-110); Potassium 3.8 mmol/L (3.5-5.1); Protein, Total 5.9 g/dL (5.8-8.1); Sodium 140 mmol/L (136-145)
[2022-10-25] MEDS ORDERED: Furosemide 40 MG/4 ML VIAL SLOW IVP SCH (09:00)
[2022-10-25] MEDS ORDERED: FERROUS SULFATE 142 MG PO SCH (09:00)
[2022-10-25] MEDS: Citalopram 10 MG TAB PO SCH (09:30)
[2022-10-25] MEDS: Aspirin 81 mg Enteric Coated Tablet PO SCH (09:30)
[2022-10-25] MEDS: hydrOXYzine 25 MG TAB PO SCH (09:30)
[2022-10-25] MEDS: busPIRone HCl 5 MG TAB PO SCH ×2 (09:30→20:08)
[2022-10-25 11:20] LABS: #Eosinphils 0.3 thou/uL (0.0-0.7); #Lymphocytes 1.2 thou/uL (1.20-3.40); #Monocytes 0.8 thou/uL (0.11-0.59); #Neutrophils 5.3 thou/uL (1.40-6.50); %Basophils 0.6 % (0.0-1.0); %Eosinophils 3.6 % (0.0-10.0); %Lymphocytes 15.9 % (21.0-51.0); %Monocytes 10.9 % (0.0-10.0); Hemoglobin 9.6 g/dL (12.0-16.0); Mean Corpuscular HGB CONC 32.6 g/dL (32.0-36.0); Mean Corpuscular Hemoglobin 30.5 pg (27.0-31.0); Mean Corpuscular Volume 93.3 fl (78.0-98.0); Mean Platelet Volume 7.4 fL (7.4-10.4); Platelet Count 228 10x3/uL (130-400); RBC Distribution Width 14.8 % (11.5-14.5); Red Blood Cell (RBC) Count 3.15 mill/uL (4.20-5.40); White Blood Cell (WBC) Count 7.6 10x3/uL (4.8-10.8)
[2022-10-25] MEDS: Fluticasone Propionate Nasal Spray 16 gm Bottle NASAL SCH (12:46)
[2022-10-25] MEDS: Melatonin 3 MG TAB PO SCH (20:08)
[2022-10-25] MEDS: Atorvastatin Calcium 20 MG TAB PO SCH (20:08)
[2022-10-25] MEDS: Doxepin HCl 10 MG CAP PO SCH (20:08)
[2022-10-25] MEDS: Gabapentin 300 MG CAP PO SCH (20:08)
[2022-10-25] MEDS: Acetaminophen 325 MG TAB PO PRN (20:17)
[2022-10-26 05:10] LABS: ALT (SGPT) 46 U/L (8-55); AST (SGOT) 26 U/L (5-34); Albumin 3.3 g/dL (3.4-4.8); Alkaline Phosphatase 93 U/L (40-110); Anion Gap 15 mmol/L (10-20); BUN (Urea Nitrogen) 28 mg/dL (9.8-20.1); Bilirubin, Total 0.3 mg/dL (0.2-1.2); Calc. Creatinine Clearance 35 mL/min (70-130); Calcium 8.9 mg/dL (7.8-10.44); Carbon Dioxide 19 mmol/L (23-31); Chloride 112 mmol/L (98-107); Estimated GFR 49; Globulin 2.7 g/dL (2.4-3.5); Glucose 93 mg/dL (83-110); Potassium 4.1 mmol/L (3.5-5.1); Sodium 142 mmol/L (136-145)
[2022-10-26] MEDS: Levothyroxine Sodium 75 MCG TAB PO SCH (05:13)
[2022-10-26] MEDS: Citalopram 10 MG TAB PO SCH (08:29)
[2022-10-26] MEDS: busPIRone HCl 5 MG TAB PO SCH (08:29)
[2022-10-26] MEDS: Aspirin 81 mg Enteric Coated Tablet PO SCH (08:29)
[2022-10-26] MEDS: hydrOXYzine 25 MG TAB PO SCH (08:30)
[2022-10-26] MEDS: Fluticasone Propionate Nasal Spray 16 gm Bottle NASAL SCH (08:30)
[2022-10-26 13:03] VITALS: BP 167/72; TEMP 98.6
== END 2022-10-26 15:58 | disposition home or self-care (01) | DRG 291 ==
LOC: ERS 11:04 → ERHOLD 14:50 → 2SW 16:19 → OBSVTOIN 10-26 11:32
PROVIDERS: ADMIT Student in an Organized Health Care Education/Training Program; ATTEND Student in an Organized Health Care Education/Training Program
DX: I11.0 Hypertensive heart disease with heart failure (principal); I50.33 Acute on chronic diastolic (congestive) heart failure; I47.1 Supraventricular tachycardia; N17.9 Acute kidney failure, unspecified; Z20.822 Contact with and (suspected) exposure to COVID-19; I25.10 Atherosclerotic heart disease of native coronary artery without angina pectoris; I48.0 Paroxysmal atrial fibrillation; Z87.01 Personal history of pneumonia (recurrent); R74.01 Elevation of levels of liver transaminase levels; Z88.1 Allergy status to other antibiotic agents; Z88.0 Allergy status to penicillin; Z88.2 Allergy status to sulfonamides; Z88.8 Allergy status to other drugs, medicaments and biological substances; Z91.013 Allergy to seafood; Z79.899 Other long term (current) drug therapy; Z79.82 Long term (current) use of aspirin; Z95.2 Presence of prosthetic heart valve; Z82.49 Family history of ischemic heart disease and other diseases of the circulatory system
CPT/HCPCS: 36415; 71045; 80053; 81003; 81015; 83605; 83880; 84484; 85025; 87040; 87086; 93005; 93798; 96374; G0378; J0696; J1940

== ENCOUNTER 2023-03-27 09:15 | Outpatient (CLI) | payer MEDICARE | END 2023-03-27 09:16 | disposition home or self-care (01) | LOC: BICCT 09:15 | PROVIDERS: ATTEND Student in an Organized Health Care Education/Training Program | DX: R91.8 Other nonspecific abnormal finding of lung field (principal) | CPT/HCPCS: 71260; 82565 ==

== ENCOUNTER 2023-08-05 08:03 | Outpatient (CLI) | payer MEDICARE | END 2023-08-05 08:04 | disposition home or self-care (01) | LOC: BICULT 08:03 | PROVIDERS: ATTEND Internal Medicine Nephrology | DX: I12.9 Hypertensive chronic kidney disease with stage 1 through stage 4 chronic kidney disease, or unspecified chronic kidney disease (principal); N18.9 Chronic kidney disease, unspecified; D17.71 Benign lipomatous neoplasm of kidney; N28.1 Cyst of kidney, acquired | CPT/HCPCS: 76770; 93975 ==

== ENCOUNTER 2023-10-10 12:00 | Inpatient (IN) | payer MEDICARE ==
[2023-10-10 11:25] VITALS: BMI 25.6
[2023-10-10 12:57] LABS: Hematocrit 36.9 % (34.9-44.5); Mean Corpuscular HGB CONC 32.5 g/dL (32.0-36.0); Mean Corpuscular Hemoglobin 29.4 pg (27.0-33.0); Mean Corpuscular Volume 90.4 fl (81.6-98.3); Mean Platelet Volume 10.2 fl (7.4-10.4); Platelet Count 259 10x3/uL (150-450); RBC Distribution Width 14.6 % (11.5-14.5); Red Blood Cell (RBC) Count 4.08 10x6/uL (3.90-5.03); White Blood Cell (WBC) Count 7.6 10x3/uL (3.5-10.5)
[2023-10-10 13:28] LABS: ALT (SGPT) 12 U/L (8-55); AST (SGOT) 19 U/L (5-34); Albumin 4.4 g/dL (3.4-4.8); Alkaline Phosphatase 78 U/L (40-110); Anion Gap 16 mmol/L (10-20); BUN (Urea Nitrogen) 15 mg/dL (9.8-20.1); Bilirubin, Total 0.5 mg/dL (0.2-1.2); Calc. Creatinine Clearance 34 mL/min (70-130); Calcium 9.1 mg/dL (7.8-10.44); Carbon Dioxide 22 mmol/L (23-31); Chloride 108 mmol/L (98-107); Estimated GFR 45; Globulin 2.6 g/dL (2.4-3.5); Glucose 91 mg/dL (83-110); Potassium 4.9 mmol/L (3.5-5.1); Sodium 141 mmol/L (136-145)
[2023-10-10 13:54] LABS: Bilirubin Neg (Negative); Blood, Urine 25 (Negative); Clarity Slightly Cloudy (Clear); Glucose, Urine (Dipstick) Normal (Negative); Ketone, Urine Negative (Negative); Leukocyte 100 (Negative); Nitrite Positive (Negative); Protein, Urine (Dipstick) 15 mg/dl (Neg-Trace); Urobilinogen Normal mg/dL (Less than 2)
[2023-10-14] MEDS ORDERED: Clindamycin/D5W 900 mg/50 ml Premix Bag ONE (07:27)
[2023-10-14] MEDS ORDERED: Heparin 10,000 UNITS/ 10 ML VIAL ONE (07:27)
[2023-10-14] MEDS ORDERED: Protamine Sulfate 50 MG/5 ML VIAL ONE (07:27)
[2023-10-14] MEDS ORDERED: Lidocaine 1% MPF 2 ML VIAL ONE (08:51)
[2023-10-14] MEDS ORDERED: SUGAMMADEX SODIUM 200 MG/2 ML VIAL ONE (10:01)
[2023-10-14] MEDS ORDERED: fentaNYL 50 mcg/mL 1 mL Vial ONE (10:01)
[2023-10-14] MEDS ORDERED: PHENYLEPHRINE-NS 100 MCG/ML 10 ML SYRINGE ONE (10:10)
[2023-10-14] MEDS ORDERED: Rocuronium Bromide 10 MG/ML (10ML VIAL) ONE (10:10)
[2023-10-14] MEDS ORDERED: Ondansetron PF 4 MG/2 ML Vial ONE (10:10)
[2023-10-14] MEDS ORDERED: Dexamethasone 20 MG/5 ML VIAL ONE (10:10)
[2023-10-14] MEDS ORDERED: Iopamidol 370 76% 100 ML VIAL ONE (12:13)
== END 2023-10-14 15:20 | disposition home or self-care (01) | DRG 274 ==
LOC: SURG A 10-14 07:02
PROVIDERS: ADMIT Internal Medicine Cardiovascular Disease; ATTEND Internal Medicine Cardiovascular Disease
PROC: B24BZZ4 Ultrasonography of Heart with Aorta, Transesophageal (ICD-10-PCS; principal; 2023-10-14)
PROC: 02L73DK Occlusion of Left Atrial Appendage with Intraluminal Device, Percutaneous Approach (ICD-10-PCS; 2023-10-14)
DX: I48.19 Other persistent atrial fibrillation (principal); Z00.6 Encounter for examination for normal comparison and control in clinical research program; E78.5 Hyperlipidemia, unspecified; I48.0 Paroxysmal atrial fibrillation; I47.20 Ventricular tachycardia, unspecified; I10 Essential (primary) hypertension; D50.9 Iron deficiency anemia, unspecified; Z95.1 Presence of aortocoronary bypass graft; Z98.890 Other specified postprocedural states; Z79.01 Long term (current) use of anticoagulants; Z88.0 Allergy status to penicillin; Z88.2 Allergy status to sulfonamides; Z88.8 Allergy status to other drugs, medicaments and biological substances; Z91.013 Allergy to seafood; Z88.1 Allergy status to other antibiotic agents; Z90.49 Acquired absence of other specified parts of digestive tract; Z79.899 Other long term (current) drug therapy; Z79.82 Long term (current) use of aspirin; Z79.890 Hormone replacement therapy; Z82.49 Family history of ischemic heart disease and other diseases of the circulatory system; Z83.3 Family history of diabetes mellitus
CPT/HCPCS: 33340; 80053; 81003; 85027; 85347; 85610; 85730; 86850; 86900; 86901; 93005; 93010; 93306; 93312; C1759; C1760; C1894; J1100; J1644; J2405; J2720; J3010; J3490; Q9967

== ENCOUNTER → 2024-01-01 | Day surgery (SDC) | payer MEDICARE ==
[2023-12-31 13:35] VITALS: BMI 25.2
== END | disposition home or self-care (01) ==
LOC: SDC 05:48
PROVIDERS: ATTEND Internal Medicine Cardiovascular Disease
PROC: B246ZZ4 Ultrasonography of Right and Left Heart, Transesophageal (ICD-10-PCS; principal; 2024-01-01)
DX: I48.11 Longstanding persistent atrial fibrillation (principal); Z00.6 Encounter for examination for normal comparison and control in clinical research program; I08.1 Rheumatic disorders of both mitral and tricuspid valves; I48.0 Paroxysmal atrial fibrillation; K21.9 Gastro-esophageal reflux disease without esophagitis; Z88.1 Allergy status to other antibiotic agents; Z88.0 Allergy status to penicillin; Z91.013 Allergy to seafood; Z88.2 Allergy status to sulfonamides; Z88.8 Allergy status to other drugs, medicaments and biological substances; Z79.899 Other long term (current) drug therapy
CPT/HCPCS: 80048; 85025; 85610; 85730; 93312; J2704

== ENCOUNTER 2024-03-05 13:34 | Outpatient (CLI) | payer MEDICARE | END 2024-03-05 13:35 | disposition home or self-care (01) | LOC: BICULT 13:34 | PROVIDERS: ATTEND Urology | DX: D17.71 Benign lipomatous neoplasm of kidney (principal); R54 Age-related physical debility; N28.9 Disorder of kidney and ureter, unspecified; N28.1 Cyst of kidney, acquired | CPT/HCPCS: 36415; 76770; 80048; 81001; 87077; 87086; 87186 ==